=== PATIENT | female | born 1980 | race Caucasian/White ===

== ENCOUNTER 2017-11-18 17:03 | Emergency (ER) | payer BC, SELFPAY ==
[2017-11-18 17:44] VITALS: BP 119/71; PULSE 105; RESP 20; TEMP 37.2; O2SAT 99; BMI 27.2
[2017-11-18 18:11] LABS: Color,Urine Yellow (Yellow)
[2017-11-18 18:12] LABS: Apearance,Urine Cloudy (Clear); Bilirubin,Urine 1+ (Negative); Blood, Urine Negative (Negative); Glucose,Urine (UA) Negative (Negative); Ketones,Urine Negative (Negative); Protein,Urine Trace (Negative); Urobilinogen,Urine 1 EU/dl (0.2)
[2017-11-18 18:13] LABS: UTC Leukocyte Esterase,Urine Trace (Negative); UTC Nitrate,Urine Negative (Negative)
--- NOTE | 2017-11-18 18:16 | HMH.EDUTC ---
[facility] [place] Dis[place] Clinical Impression: UTI (urinary tract infection) Qualifiers: Urinary tract infection type: site unspecified Hematuria presence: without hematuria Qualified Code(s): N39.0 - Urinary tract infection, site not specified Disposition: Home, Self-Care Condition on Discharge: Good Instructions: Urinary Tract Infection Additional Instructions: FOllow up with family doctor Return if needed Take medication as prescribed Over the counter Motrin or Tylenol as needed for pain Drink plenty of fluids *Increase fluids. Water not Soda or Tea *Start antibiotic immediately and be sure to take as ordered for the FULL length of time although you should start to see improvement over the next 48 hours *Pyridium as needed Remember this medication will turn your urine [place]. This is normal but it will stain what ever it gets on *You should not use Pyridium for more than 48 hours. If so , follow up with your primary physician to review urine culture and ensure that antibiotic is adequate for infection *Be SURE to follow up anytime for new or worsening symptoms. AND in 48 hours for urine culture results AND in 10-14 days to repeat UA to ensure infection is resolved and blood no longer present *Be sure to let your PCP know that we sent urine cultures from the [facility] so they can follow up to ensure that you area the on the correct antibiotic Prescriptions: Phenazopyridine HCl [Pyridium 200mg Tablet] 200 mg PO TID #6 tablet predniSONE [Prednisone 10mg Tab Dose-Pack] 10 mg PO UD DOSE PK #1 pack Sulfamethoxazole/Trimethoprim [Bactrim DS tablet] 1 each PO BID #20 tablet Time of Disposition: 19:10 Medical Decision Making Vital Signs: 11/18/17 17:44 Temperature 99 F Temperature Source Temporal Artery Scan Pulse Rate [Brachial] 105 H Respiratory Rate 20 Blood Pressure [Right Arm] 119/71 Blood Pressure Mean [Right Arm] 87 Blood Pressure Source [Right Arm] Automatic Cuff Blood Pressure Position [Right Arm] Sitting 02 Sat by Pulse Oximetry 99 Oxygen Delivery Method Room Air - Lab Data Lab Results 11/18/17 17:48: Urine Color Yellow, Urine Appearance Cloudy, Urine pH 6.0, Ur Specific [place] 1.020, Urine Protein Trace, Urine Glucose (UA) Negative, Urine Ketones Negative, Urine Blood Negative, Urine Nitrate Negative, Urine Bilirubin 1+ A, Urine Urobilinogen 1, Ur Leukocyte Esterase Trace 11/18/17 18:15: Influenza Type A Ag Negative, Influenza Type B Ag Negative Orders (Tests/Meds): ED MEDICATIONS Discontinued Medications Generic Name Dose Route Start Last Admin Trade Name Kiran PRN Reason Stop Dose Admin Dicyclomine HCl 10 mg 11/18/17 18:16 11/18/17 18:23 Bentyl 10mg Capsule PO 11/18/17 18:17 10 mg ONCE ONE Administration - Clinton Inquiry Pt receiving controlled substance: No Clinton was queried for this patient: No - Reevaluation(s) Time: 18:54 (Patient was given Bentyl State that cramping she was feeling in abdominal area now gone and feeling much better Again recommended that patient be transfered to ER and be seen and still refusing transfer) [facility] [place] HPI - General Stated complaint: nausea, stomach cramps Mode of Arrival: Ambulatory Source of Information: Patient Limitations: No Limitations Description of Symptoms (Recalled from Triage Doc. by RN): LOWER ABDOMINAL PAIN AND LOWER BACK PAIN HEENT Symptoms (Recalled from RN notes): No Resp Symptoms (Recalled from RN notes): No Skin Symptoms (Recalled from RN notes): No MS Symptoms (Recalled from RN notes): No Functional Status (Recalled from RN notes): NA - History of Present Illness Provider Complaint: Patient state that she has been having a cramping like feeling in her abdomen States that it feels like at times that it goes into her lower back area State that she has not had any burning with urination but her urine looks a little dark States that several people at her work has had the stomach virus too and not sure if she may or may not have it Sta
[2017-11-18 18:28] LABS: UTC Influenza A Antigen Negative (Negative); UTC Influenza B Antigen Negative (Negative)
== END 2017-11-18 19:16 | disposition home or self-care (01) ==
PROVIDERS: Emergency Provider Nurse Practitioner; Family Provider Family Medicine
DX: N39.0 Urinary tract infection, site not specified (principal)
CPT/HCPCS: 81003; 87804; 99202

== ENCOUNTER 2017-11-30 17:10 | Emergency (ER) | payer BC, SELFPAY ==
[2017-11-30 17:24] VITALS: BP 113/77; PULSE 104; RESP 20; TEMP 36.9; O2SAT 97; BMI 27.2
--- NOTE | 2017-11-30 17:36 | CT_ITS ---
CT abdomen pelvis wo con CLINICAL INDICATION: Periumbilical pain, abdominal cramping ITS.REASON: ABD CRAMPS ORDERING PHYSICIAN: Navneet Rubin MD PATIENT AGE: 37 years COMPARISON: 07/10/2015 TECHNIQUE: Axial images obtained with sagittal and coronal reformats. PROCEDURE: Oral Contrast: None IV Contrast: None . FINDINGS: No acute finding in the lung bases. The liver is somewhat hyperdense measuring 70 Hounsfield units. The spleen measures 49 Hounsfield units. This does raise question of hemachromatosis. No focal liver lesions are evident. The gallbladder, spleen, adrenal glands, and pancreas have an unremarkable unenhanced CT appearance. Slight hyperdensity noted of the renal papilla nonspecific but may be seen with medullary sponge kidney. No obstructing stones or ureteral calculi. No hydronephrosis There are thickened small bowel loops present in the pelvis with fluid-filled small bowel with a few scattered air-fluid levels. Fluid is present around the thickened bowel loops and in the cul-de-sac. These findings are consistent with enteritis which could be infectious or due to inflammatory bowel disease. The base of the appendix is slightly prominent at 8 mm with hyperdense material within the base of the appendix which could be due to inspissated bowel content, medication, or appendicoliths. No evidence of appendicitis. Possible small calcification in the bladder neck. Prior hysterectomy. No acute bony anomalies. There are scattered small lymph nodes in the mesentery's. IMPRESSION: 1. Thickened small bowel loops in the pelvis with scattered air-fluid levels of the small bowel which are slightly dilated. These findings are consistent with enteritis and could be infectious or inflammatory such as Crohn's disease. Infiltrating neoplasm less likely but not totally excluded. 2. Appendicoliths or inspissated bowel contents within the appendix no evidence of appendicitis. 3. Hyperdense liver raising the suspicion of hemachromatosis 4. Hyperdense renal papilla nonspecific but may be seen with medullary sponge disease. No obstructing renal or ureteral calculi.
[2017-11-30 18:05] LABS: Microscopic, Urine URINE MICROSCOPIC (MICROSCOPIC)
[2017-11-30 18:06] LABS: Basophils # 0.1 K/mm3 (0-0.2); Basophils % 0.4 % (0.1-2.0); Eosinophils # 0.4 K/mm3 (0.0-0.4); Eosinophils % 2.8 % (0.1-12.0); Hematocrit 47.8 % (37.0-47.0); Hemoglobin 15.7 g/dL (12.2-16.2); Lymphocytes # 3.8 K/mm3 (0.7-4.5); Lymphocytes % 27.7 K/mm3 (10-50); Mean Corpuscular Hemoglobin 28.3 pg (27.0-31.2); Mean Corpuscular Volume 85.9 fl (81-99); Mean Platelet Volume 7.1 fl (7.4-10.4); Monocytes # 0.6 K/mm3 (0.1-1.0); Neutrophils % 65.3 % (37.0-80.0); Platelet Count 351 K/mm3 (142-424); Red Blood Count 5.56 M/mm3 (4.20-5.40); Red Cell Distribution Width 13.1 % (11.5-17.5); White Blood Count 13.8 K/mm3 (4.8-10.8)
[2017-11-30 18:17] LABS: Alanine Aminotransferase 29 U/L (12-78); Albumin Level 3.3 gm/dL (3.4-5.0); Alkaline Phosphatase 56 U/L (46-116); Anion Gap 8.8 mEq/L (5-15); Aspartate Amino Transferase 15 U/L (15-37); Bilirubin,Total 0.1 mg/dL (0.2-1.0); Blood Urea Nitrogen 9 mg/dL (7-18); Carbon Dioxide 30 mmol/L (21.0-32.0); Chloride 104 mmol/L (98-107); Creatinine Clearance Estimated 97 mL/min (0-300); Creatinine,Serum 0.78 mg/dL (0.55-1.02); Estimated Glomerular Filt Rate 84 ml/min (>60); GFR (African American) 102 ML/MIN (>60); Globulin 3.3 gm/dl (1.3-3.2); Glucose 93 mg/dL (74-106); Potassium 3.8 mmoL/L (3.5-5.1); Sodium 139 mmol/L (136-145); Total Protein,Serum 6.6 gm/dL (6.4-8.2)
[2017-11-30 18:29] LABS: Urine Pregnancy, HCG Qual. Negative (Negative)
--- NOTE | 2017-11-30 19:09 | HMH.EDABDPAI ---
ED Disposition Clinical Impression: Enteritis, Lymphoma, Tobacco use Disposition: Home, Self-Care Condition on Discharge: Good Instructions: DI for Acute Abdomen Additional Instructions: 1- clear/soft diet. 2- start abx 3- bentyl per pt request. 4- out patietn stool studies and diarrhea panel. 5- flagyl and cipro. 6- I gave you your CT scan to discuss with Dr Grossman about further work up. Prescriptions: Dicyclomine HCl [Bentyl 10mg capsule] 10 mg .ROUTE Q8HP PRN #21 capsule PRN Reason: Cramping Ciprofloxacin HCl [Cipro 500mg Tab] 500 mg PO BID #20 tab metroNIDAZOLE [Flagyl] 500 mg PO Q8 #30 tablet Referrals: Ken Grossman MD [Primary Care Provider] - - Critical Care Critical Care Time: No Attestation: On 11/30/17, the high probability of a clinically significant, sudden or life threatening deterioration of the following system(s) required my full and direct attention, intervention and personal management. The time I documented below is in addition to time spent performing reported procedures but includes the following listed in this critical care notation. Medical Decision Making - Medical Records Medical records reviewed: Yes: I reviewed the patient's medical records. Vital Signs: 11/30/17 17:24 Temperature 98.4 F Temperature Source Tympanic Pulse Rate [Right Radial] 104 H Respiratory Rate 20 Blood Pressure [Right Arm] 113/77 Blood Pressure Mean [Right Arm] 89 Blood Pressure Source [Right Arm] Automatic Cuff Blood Pressure Position [Right Arm] Sitting 02 Sat by Pulse Oximetry 97 Oxygen Delivery Method Room Air - Lab Data Lab Results 11/30/17 17:33: WBC 13.8 H, RBC 5.56 H, Hgb 15.7, Hct 47.8 H, MCV 85.9, MCH 28.3, MCHC 33.0, RDW 13.1, Plt Count 351, MPV 7.1 L, Neut % (Auto) 65.3, Lymph % (Auto) 27.7, [place] % (Auto) 4.0, Eos % (Auto) 2.8, Baso % (Auto) 0.4, Neut # (Auto) 9.0 H, Lymph # (Auto) 3.8, [place] # (Auto) 0.6, Eos # (Auto) 0.4, Baso # (Auto) 0.1 11/30/17 17:33: Sodium 139, Potassium 3.8, Chloride 104, Carbon Dioxide 30, Anion Gap 8.8, BUN 9, Creatinine 0.78, Estimated Creat Clear 97, Estimated GFR 84, Est GFR ( Amer) 102, Glucose 93, Calcium 9.0, Total Bilirubin 0.1 L, AST 15, ALT 29, Alkaline Phosphatase 56, Total Protein 6.6, Albumin 3.3 L, Globulin 3.3 H, Albumin/Globulin Ratio 1.0 L 11/30/17 17:33: Urine HCG, Qual Negative Result diagrams: 11/30/17 17:33 11/30/17 17:33 Orders (Tests/Meds): ORDERS Category Date Time Status CT abdomen pelvis wo con Stat Cat Scan 11/30/17 17:36 Taken Urinalysis and Microscopic Stat Lab 11/30/17 17:33 Received - CT Data CT Scan: Abdomen, Pelvis Time Received: 19:[address] Reviewed: Yes: I have viewed the radiologist's interpretation Preliminary Findings: Abnormal - [place] Inquiry Pt receiving controlled substance: No [place] was queried for this patient: No Medical Decision Making Narrative: I requested from the patient is to sample to complete her workup in the form of stool culture panel but she declined, be given orders as an outpatient. I did review the patient's CT scan report and lab results the patient. Furthermore she was given report to discuss with Dr. Grossman. The above findings suggest enteritis but cannot exclude lymphoma. Abdominal Pain HPI - General Chief Complaint: Abdominal Pain Stated Complaint: Abd cramps Mode of Arrival: Ambulatory Limitations: No Limitations Description of Symptoms (Recalled from ER Triage Doc. by RN): Abdominal cramping for a couple of weeks. States she was seen a few weeks ago for a UTI and took a course of Bactrim. Denies diarrhea. - History of Present Illness HPI narrative: 37 years old white female who presented to the ED with 2 week history of mid abdominal pain. She reports that the pain is crampy with no precipitating or relieving factor. She denies having fever chills nausea vomiting diarrhea. She has no hematemesis coffee-ground emesis melanoti
--- NOTE | 2017-11-30 19:12 | ED_ITS ---
ED Disposition Clinical Impression: Enteritis, Lymphoma, Tobacco use Disposition: Home, Self-Care Condition on Discharge: Good Instructions: DI for Acute Abdomen Additional Instructions: 1- clear/soft diet. 2- start abx 3- bentyl per pt request. 4- out patietn stool studies and diarrhea panel. 5- flagyl and cipro. 6- I gave you your CT scan to discuss with Dr Grossman about further work up. Prescriptions: Dicyclomine HCl [Bentyl 10mg capsule] 10 mg .ROUTE Q8HP PRN #21 capsule PRN Reason: Cramping Ciprofloxacin HCl [Cipro 500mg Tab] 500 mg PO BID #20 tab metroNIDAZOLE [Flagyl] 500 mg PO Q8 #30 tablet Referrals: Ken Grossman MD [Primary Care Provider] - - Critical Care Critical Care Time: No Attestation: On 11/30/17, the high probability of a clinically significant, sudden or life threatening deterioration of the following system(s) required my full and direct attention, intervention and personal management. The time I documented below is in addition to time spent performing reported procedures but includes the following listed in this critical care notation. Medical Decision Making - Medical Records Medical records reviewed: Yes: I reviewed the patient's medical records. Vital Signs: 11/30/17 17:24 Temperature 98.4 F Temperature Source Tympanic Pulse Rate [Right Radial] 104 H Respiratory Rate 20 Blood Pressure [Right Arm] 113/77 Blood Pressure Mean [Right Arm] 89 Blood Pressure Source [Right Arm] Automatic Cuff Blood Pressure Position [Right Arm] Sitting 02 Sat by Pulse Oximetry 97 Oxygen Delivery Method Room Air - Lab Data Lab Results 11/30/17 17:33: WBC 13.8 H, RBC 5.56 H, Hgb 15.7, Hct 47.8 H, MCV 85.9, MCH 28.3 , MCHC 33.0, RDW 13.1, Plt Count 351, MPV 7.1 L, Neut % (Auto) 65.3, Lymph % ( Auto) 27.7, [place] % (Auto) 4.0, Eos % (Auto) 2.8, Baso % (Auto) 0.4, Neut # (Auto ) 9.0 H, Lymph # (Auto) 3.8, [place] # (Auto) 0.6, Eos # (Auto) 0.4, Baso # (Auto) 0.1 11/30/17 17:33: Sodium 139, Potassium 3.8, Chloride 104, Carbon Dioxide 30, Anion Gap 8.8, BUN 9, Creatinine 0.78, Estimated Creat Clear 97, Estimated GFR 84, Est GFR ( Amer) 102, Glucose 93, Calcium 9.0, Total Bilirubin 0.1 L, AST 15, ALT 29, Alkaline Phosphatase 56, Total Protein 6.6, Albumin 3.3 L, Globulin 3.3 H, Albumin/Globulin Ratio 1.0 L 11/30/17 17:33: Urine HCG, Qual Negative Result diagrams: 11/30/17 17:33 11/30/17 17:33 Orders (Tests/Meds): ORDERS Category Date Time Status CT abdomen pelvis wo con Stat Cat Scan 11/30/17 17:36 Taken Urinalysis and Microscopic Stat Lab 11/30/17 17:33 Received - CT Data CT Scan: Abdomen, Pelvis Time Received: 19:[address] Reviewed: Yes: I have viewed the radiologist's interpretation Preliminary Findings: Abnormal - Clinton Inquiry Pt receiving controlled substance: No [place] was queried for this patient: No Medical Decision Making Narrative: I requested from the patient is to sample to complete her workup in the form of stool culture panel but she declined, be given orders as an outpatient. I did review the patient's CT scan report and lab results the patient. Furthermore she was given report to discuss with Dr. Grossman. The above findings suggest enteritis but cannot exclude lymphoma. Abdominal Pain HPI - General Chief Complaint: Abdominal Pain Stated Complaint: Abd cram
[2017-11-30 19:13] LABS: Bacteria,Urine 2+ /lpf; Calcium Oxalate Crystals,Urine 3+ /lpf; RBC,Urine Occasional #/hpf (0-3); Squamous Epithelial Cell,Urine TNTC #/hpf (0-5)
[2017-11-30 19:17] LABS: Appearance,Urine CLEAR (Clear); Bilirubin,Urine Negative (Negative); Blood, Urine Negative (Negative); Color,Urine YELLOW (Yellow); Glucose,Urine (UA) Negative (Negative); Ketones,Urine Negative (Negative); Leukocyte Esterase,Urine Negative (Negative); Nitrate,Urine Negative (Negative); Protein,Urine Negative (Negative); Specific Gravity, Urine >= 1.030 (1.005-1.030); Urobilinogen,Urine 0.2 EU/dl (0.2)
== END 2017-11-30 20:01 | disposition home or self-care (01) ==
PROVIDERS: Emergency Provider Emergency Medicine; Family Provider Family Medicine; PCP Family Medicine
DX: K52.9 Noninfective gastroenteritis and colitis, unspecified (principal); C85.90 Non-Hodgkin lymphoma, unspecified, unspecified site; Z79.899 Other long term (current) drug therapy; F17.210 Nicotine dependence, cigarettes, uncomplicated
CPT/HCPCS: 74176; 80053; 81001; 81025; 85025; 87086; 99282

== ENCOUNTER → 2017-12-01 14:01 | Outpatient (CLI) | payer BC, SELFPAY ==
[2017-12-01 14:07] LABS: Adenovirus F 40/41, stool Not Detected (NotDetected); Astrovirus Not Detected (NotDetected); Campylobacter Not Detected (NotDetected); Clostridium Difficile A/B, PCR Not Detected (NotDetected); Cryptosporidium Not Detected (NotDetected); Cyclospora Cayetanesis Not Detected (NotDetected); Entamoeba histolytica Not Detected (NotDetected); Enteroaggregative E coli Not Detected (NotDetected); Enteropathogenic E coli Not Detected (NotDetected); Enterotoxigenic E coli Not Detected (NotDetected); Giardia lamblia Not Detected (NotDetected); Plesimonas Shigalloides, PCR Not Detected (NotDetected); Rotavirus A Not Detected (NotDetected); Salmonella, PCR Not Detected (NotDetected); Sapovirus Not Detected (NotDetected); Shiga-like toxin E coli Not Detected (NotDetected); Shigella Enterovasive E coli Not Detected (NotDetected); Vibrio Cholerae Not Detected (NotDetected); Vibrio, PCR Not Detected (NotDetected); Yersinia Entercolitica, PCR Not Detected (NotDetected)
[2017-12-02 04:49] LABS: Norovirus Detected (NotDetected)
== END ==
PROVIDERS: PCP Family Medicine; Visit Provider Emergency Medicine
DX: K52.9 Noninfective gastroenteritis and colitis, unspecified (principal)
CPT/HCPCS: 87507

== ENCOUNTER → 2017-12-17 08:43 | Outpatient (CLI) | payer BC, SELFPAY ==
--- NOTE | 2017-12-17 09:02 | US_ITS ---
US abdomen limited: HISTORY: Abdominal pain ITS.REASON: LEUKOPENIA,ANEMIA ORDERING PHYSICIAN: Ken Grossman MD PATIENT AGE: 37 years COMPARISON: None FINDINGS: PANCREAS: Unremarkable. No obvious mass or abnormal fluid collection. No ductal dilatation LIVER: No focal liver lesions demonstrated. Homogeneous echogenicity. No intrahepatic biliary ductal dilatation evident RIGHT KIDNEY: Unremarkable. Normal size and echogenicity. No hydronephrosis GALLBLADDER: There is a small polyp within the gallbladder measuring up to 4 mm. No gallstones, gallbladder wall thickening, or pericholecystic fluid. Common bile duct is normal at 3 mm. IMPRESSION: 1. Small gallbladder polyp. 2. Otherwise negative limited abdominal ultrasound
== END ==
PROVIDERS: Family Provider Family Medicine; PCP Family Medicine; Visit Provider Family Medicine
DX: R10.11 Right upper quadrant pain (principal)
CPT/HCPCS: 76705

== ENCOUNTER → 2017-12-31 10:08 | Outpatient (CLI) | payer BC, SELFPAY ==
--- NOTE | 2017-12-31 10:15 | NM_ITS ---
NM hepatobiliary w pharm HISTORY: Right upper quadrant pain ITS.REASON: ABDOMINAL PAIN ORDERING PHYSICIAN: Ken Grossman MD PATIENT AGE: 37 years COMPARISON: Ultrasound 12/17/17 DOSE: 8.32 mCi technetium Choletec Fatty meal/ensure was given and there was pain with the fatty meal. FINDINGS: Homogeneous activity is present within the hepatic parenchyma. Activity is present in the gallbladder by 30 minutes. Activity is present in the small bowel by 10 minutes. The gallbladder ejection fraction is calculated to be 18% The patient did report pain or other symptoms during the fatty meal. IMPRESSION: 1. No evidence of common or cystic duct obstruction. 2. Low gallbladder ejection fraction. Pain was reported with the fatty meal. These findings may represent gallbladder dyskinesia.
== END ==
PROVIDERS: Family Provider Family Medicine; PCP Family Medicine; Visit Provider Family Medicine
DX: R10.11 Right upper quadrant pain (principal)
CPT/HCPCS: 78227; A9537

== ENCOUNTER 2018-01-22 17:55 | Emergency (ER) | payer BC, SELFPAY ==
[2018-01-22 18:08] VITALS: BP 114/79; PULSE 76; RESP 20; TEMP 37.3; O2SAT 98; BMI 28.3
--- NOTE | 2018-01-22 18:24 | HMH.EDUTC ---
[facility] [place] Clinical Impression: Chronic idiopathic urticaria Disposition: Home, Self-Care Condition on Discharge: Good Instructions: DI for Hives Additional Instructions: * Start steroid tomorrow since you had dexamethasone injection this evening. Helps with inflammation therefore, itching and rash. Follow directions on package. Rvwd side effects. Pt reports they have taken them before. * dexamethasone Injection: you received an injection of dexamethasone today. This is a quick acting steroid as we discussed. Remember as we discussed, steroids can cause you to feel flushed, jittery, difficult to sleep, energetic, higher blood pressure. You report you have taken steroids before and aware of this. * cool showers or compresses calms the itching. Oatmeal baths may help as well. * If you need additional medication to help with the itching, zyrtec in the morning and if necessary, benadryl at bedtime. Just remember benadryl causes drowsiness. * Cortisone cream may also help if you want to try that. Prescriptions: predniSONE [Deltasone 10mg tablet] 10 mg PO BID #10 tab Referrals: Ken Grossman MD [Primary Care Provider] - (Return to ER or call 911 for any difficulty swallowing or breathing. Otherwise, be sure to follow up with Anastasia in Dr. Grossman' office for new, worsening or persisting symptoms.) Time of Disposition: 18:50 Medical Decision Making - Medical Records Medical records reviewed: Yes: I reviewed the patient's medical records. MR Comment: Last seen at [facility] w/ CC rash 07/02/2016. Treated w/ steroids at that time as well. - [place] Inquiry Pt receiving controlled substance: No Vital Signs: 01/22/18 18:08 Temperature 99.2 F Temperature Source Temporal Artery Scan Pulse Rate [Right Radial] 76 Respiratory Rate 20 Blood Pressure [Right Arm] 114/79 Blood Pressure Mean [Right Arm] 90 02 Sat by Pulse Oximetry 98 Oxygen Delivery Method Room Air Orders (Tests/Meds): ED MEDICATIONS Discontinued Medications Generic Name Dose Route Start Last Admin Trade Name Freq PRN Reason Stop Dose Admin Dexamethasone Sodium Phosphate 10 mg 01/22/18 18:25 01/22/18 18:43 Decadron 4mg/Ml 5ml Mdv IM 01/22/18 18:26 10 mg ONCE ONE Administration - Reevaluation(s) Time: 18:48 Reevaluation #1: Pt reports feeling fine. No noticeable improvement in hives but she feels like they are improving. Reinforced POC. Agrees to follow up. [facility] [place] HPI - General Stated complaint: rash Time Seen by Provider: 01/22/18 18:15 Mode of Arrival: Family Vehicle Source of Information: Patient Limitations: No Limitations Description of Symptoms (Recalled from Triage Doc. by RN): PT C/O HIVES ALL OVER HER BODY. PT HAS CHRONIC HIVES. HEENT Symptoms (Recalled from RN notes): No Resp Symptoms (Recalled from RN notes): No Skin Symptoms (Recalled from RN notes): Yes (HIVES) MS Symptoms (Recalled from RN notes): No Functional Status (Recalled from RN notes): NA - History of Present Illness Provider Complaint: c/o needing steroids. Hx of chronic hives. Reports she has seen multiple types of specialists and no one has found a cause. Dr. Zhao told me there was no reason for this after all the testing I had done and that some people just get them for no reason. She basically said live with it. . PCP started pt on valium to help her tolerate the chronic itching. When the hives get larger or around her eyes, she typically gets steroids. Pt isn't sure when she had steroids last but not for months I know . Denies throat irritation, dyspnea, chest tightness. Hx of asthma. cough unchanged. Hives have gotten larger throughout the day today however pt reports it is not uncommon for her to have dinner plate size hives at times. States she can't begin to list all the testing she has had done through the years for these or all the medications she has tried. She knows steroids help to calm them down for awhile at least . Denies HTN, DM. - Related D
--- NOTE | 2018-01-22 18:28 | ED_ITS ---
[facility] [place]ression: Chronic idiopathic urticaria Disposition: Home, Self-Care Condition on Discharge: Good Instructions: DI for Hives Additional Instructions: * Start steroid tomorrow since you had dexamethasone injection this evening. Helps with inflammation therefore, itching and rash. Follow directions on package. Rvwd side effects. Pt reports they have taken them before. * dexamethasone Injection: you received an injection of dexamethasone today. This is a quick acting steroid as we discussed. Remember as we discussed, steroids can cause you to feel flushed, jittery, difficult to sleep, energetic, higher blood pressure. You report you have taken steroids before and aware of this. * cool showers or compresses calms the itching. Oatmeal baths may help as well. * If you need additional medication to help with the itching, zyrtec in the morning and if necessary, benadryl at bedtime. Just remember benadryl causes drowsiness. * Cortisone cream may also help if you want to try that. Prescriptions: predniSONE [Deltasone 10mg tablet] 10 mg PO BID #10 tab Referrals: Ken Grossman MD [Primary Care Provider] - (Return to ER or call 911 for any difficulty swallowing or breathing. Otherwise, be sure to follow up with Anastasia in Dr. Grossman' office for new, worsening or persisting symptoms.) Time of Disposition: 18:50 Medical Decision Making - Medical Records Medical records reviewed: Yes: I reviewed the patient's medical records. MR Comment: Last seen at [facility] w/ CC rash 07/02/2016. Treated w/ steroids at that time as well. - [place] Inquiry Pt receiving controlled substance: No Vital Signs: 01/22/18 18:08 Temperature 99.2 F Temperature Source Temporal Artery Scan Pulse Rate [Right Radial] 76 Respiratory Rate 20 Blood Pressure [Right Arm] 114/79 Blood Pressure Mean [Right Arm] 90 02 Sat by Pulse Oximetry 98 Oxygen Delivery Method Room Air Orders (Tests/Meds): ED MEDICATIONS Discontinued Medications Generic Name Dose Route Start Last Admin Trade Name Freq PRN Reason Stop Dose Admin Dexamethasone Sodium Phosphate 10 mg 01/22/18 18:25 01/22/18 18:43 Decadron 4mg/Ml 5ml Mdv IM 01/22/18 18:26 10 mg ONCE ONE Administration - Reevaluation(s) Time: 18:48 Reevaluation #1: Pt reports feeling fine. No noticeable improvement in hives but she feels like they are improving. Reinforced POC. Agrees to follow up. [facility] [facility] [place] - General Stated complaint: rash Time Seen by Provider: 01/22/18 18:15 Mode of Arrival: Family Vehicle Source of Information: Patient Limitations: No Limitations Description of Symptoms (Recalled from Triage Doc. by RN): PT C/O HIVES ALL OVER HER BODY. PT HAS CHRONIC HIVES. HEENT Symptoms (Recalled from RN notes): No Resp Symptoms (Recalled from RN notes): No Skin Symptoms (Recalled from RN notes): Yes (HIVES) MS Symptoms (Recalled from RN notes): No Functional Status (Recalled from RN notes): NA - History of Present Illness Provider Complaint: c/o needing steroids. Hx of chronic hives. Reports she has seen multiple types of specialists and no one has found a cause. Dr. Zhao told me there was no reason for this after all the testing I had done and that some people just get them for no reason. She basically said live with it. . PCP started pt on valium to help her tolerate the chronic itching. When the hives get larger or around her eyes, she typically gets maranda
[2018-01-22 18:56] VITALS: BP 110/82; PULSE 79; RESP 16; TEMP 37.2; O2SAT 100
== END 2018-01-22 18:56 | disposition home or self-care (01) ==
LOC: UTC 18:28 → ER 18:44 → UTC 18:45
PROVIDERS: Emergency Provider Nurse Practitioner Family; Family Provider Family Medicine; PCP Family Medicine
DX: L50.1 Idiopathic urticaria (principal); F41.9 Anxiety disorder, unspecified; J45.909 Unspecified asthma, uncomplicated; F17.210 Nicotine dependence, cigarettes, uncomplicated; Z90.710 Acquired absence of both cervix and uterus
CPT/HCPCS: 96372; 99201

== ENCOUNTER → 2019-08-04 15:08 | Outpatient (CLI) | payer BC, SELFPAY ==
--- NOTE | 2019-08-04 15:37 | MM_ITS ---
PROCEDURE: MM DIG MAMM BI DX W/CAD CLINICAL INDICATION: BREAST PAIN COMPARISON: DMDB DIGITAL MAMM-DX BILATERAL from 11/05/2010 BR US BREAST-RT COMPLETE W/AXILLA from 01/23/2016 DMDB DIG MAMM-DX NATANAEL from 01/23/2016 US BREAST RT COMPLETE from 08/04/2019 TECHNIQUE: Standard images performed along with spot compression views and bilateral breast ultrasound FINDINGS: Dense fibroglandular tissue. This could obscure underlying mammographic abnormalities. A palpable nodule should be managed on a clinical basis despite negative mammogram and negative ultrasound. Right breast: Scattered areas of asymmetric density are noted which appear to compress out on the focal spot compression views. Right breast ultrasound: 4 mm cyst at 12 o'clock. No other significant anomalies are evident. Left breast: Asymmetric density deep in the upper left breast which appears to compress out is fibroglandular tissue. A at the asymmetry in the lateral and medial left breast which also appears to compress out. There is a clip in the outer aspect of the left breast. Left breast ultrasound: Complex cyst at 12 o'clock at 5 mm. 3 mm cyst at 11 o'clock. Ductal ectasia in the retroareolar region. IMPRESSION: Scattered areas of asymmetry which are felt to be probably benign. Bilateral complex breast cyst. Any palpable abnormality should be managed on a clinical basis especially in a patient with this dense breast tissue. BI-RAD Category: 3 Probably Benign Finding Short Term Follow-up FOLLOW-UP: 6M 6Month Follow-up (A letter has been sent to the patient regarding results of the study.) Dictated by: Jimenez Garrison MD 08/04/2019 16:26 Electronically signed by Jimenez Garrison MD in [place] 08/06/2019 22:34
== END ==
PROVIDERS: PCP Family Medicine; Visit Provider Family Medicine
DX: N64.4 Mastodynia (principal)
CPT/HCPCS: 76641; 77066

== ENCOUNTER → 2019-08-29 13:34 | Outpatient (CLI) | payer BC, SELFPAY ==
--- NOTE | 2019-08-29 13:38 | CT_ITS ---
PROCEDURE: CT CHEST W CON CLINCAL INDICATION: MASTODYNIA Other are COMPARISON: US BREAST LT COMPLETE from 08/04/2019 MM DIG MAMM BI DX W/CAD from 08/04/2019 TECHNIQUE: IV Contrast: 75ml Optiray 350 Axial images obtained with sagittal and coronal reformats. All CT scans at the facility use one or more dose reduction, viz: automated exposure control, ma/kV adjustment per patient size (including targeted exams where dose is matched to indication, i.e. head), or iterative reconstruction technique. FINDINGS: HEART: Unremarkable. Normal heart size. No significant pericardial effusion. MEDIASTINAL AND HILAR STRUCTURES: No mediastinal or hilar mass evident. No dominant adenopathy. PULMONARY ARTERIES: No pulmonary embolus evident. AORTA: No acute finding. No thoracic aortic aneurysm or dissection evident. LUNGS: Atelectatic or fibrotic changes are present in the right middle lobe, right lower lobe posteriorly, and lingula. No lobar consolidation or collapse. There is a calcified granuloma in the left upper lobe. No suspicious pulmonary nodules. PLEURAL SPACES: No significant effusion. No evidence of pneumothorax. BONY STRUCTURES: No acute bony abnormalities apparent. LYMPH NODES: No enlarged lymph nodes evident. UPPER ABDOMEN: Unremarkable. ADDITIONAL FINDINGS: There is asymmetric the this may be related to asymmetric breast tissue. Recent mammogram and ultrasound did not demonstrate any focal mass. Increased soft tissue density in the left breast laterally and posteriorly just anterior to the chest wall. IMPRESSION: 1. No acute intrathoracic pathology apparent. 2. Asymmetric increased soft tissue density along the deep and lateral portion of the left breast. This is flat like in nature and may merely represent asymmetric breast tissue. Recent mammogram and ultrasound did not demonstrate any focal mass. Please correlate with clinical findings. Any palpable abnormality should be managed on a clinical basis. 3. Scattered atelectatic or fibrotic changes Dictated by: Jimenez Garrison MD 08/30/2019 07:36 Electronically signed by Jimenez Garrison MD in [place] 08/30/2019 07:36
== END ==
PROVIDERS: PCP Family Medicine; Visit Provider Nurse Practitioner
DX: N64.4 Mastodynia (principal)
CPT/HCPCS: 71260; Q9967

== ENCOUNTER → 2019-09-26 17:02 | Outpatient (CLI) | payer BC, SELFPAY ==
[2019-09-26 17:30] LABS: Basophils # 0.1 K/mm3 (0-0.2); Basophils % 0.9 % (0.1-2.0); Eosinophils # 0.2 K/mm3 (0.0-0.4); Eosinophils % 2.9 % (0.1-12.0); Hematocrit 40.4 % (37.0-47.0); Hemoglobin 13.6 g/dL (12.2-16.2); Lymphocytes # 3.3 K/mm3 (0.7-4.5); Mean Corpuscular HGB Conc 33.6 g/dL (31.8-35.4); Mean Corpuscular Hemoglobin 28.8 pg (27.0-31.2); Mean Corpuscular Volume 85.6 fl (81-99); Monocytes # 0.5 K/mm3 (0.1-1.0); Monocytes % 5.7 % (1.7-9.3); Neutrophils # 3.8 K/mm3 (1.8-7.8); Neutrophils % 48.4 % (37.0-80.0); Platelet Count 332 K/mm3 (142-424); Red Blood Count 4.71 M/mm3 (4.20-5.40); Red Cell Distribution Width 13.3 % (11.5-17.5); White Blood Count 7.8 K/mm3 (4.8-10.8)
[2019-09-26 18:04] LABS: Anion Gap 10.4 mEq/L (5-15); Blood Urea Nitrogen 9 mg/dL (7-18); Calcium 8.4 mg/dL (8.5-10.1); Carbon Dioxide 27 mmol/L (21.0-32.0); Chloride 104 mmol/L (98-107); Creatinine,Serum 0.79 mg/dL (0.55-1.02); Estimated Glomerular Filt Rate 82 ml/min (>60); GFR (African American) 100 ML/MIN (>60); Glucose 88 mg/dL (74-106); Potassium 3.4 mmoL/L (3.5-5.1); Sodium 138 mmol/L (136-145)
== END ==
PROVIDERS: Visit Provider Surgery
DX: N61.0 Mastitis without abscess (principal)
CPT/HCPCS: 36415; 80048; 85025

== ENCOUNTER → 2020-08-23 14:24 | Outpatient (CLI) | payer BC, SELFPAY ==
--- NOTE | 2020-08-23 14:25 | US_ITS ---
PROCEDURE: MM DIG MAMM BI DX W/CAD Digital Breast Tomosynthesis Included CLINICAL INDICATION: 6 mo fu There is a history of breast cancer in the patient's 2 maternal aunts. There have been previous biopsies on each breast for benign disease. COMPARISON: MG DMDB DIGITAL MAMM-DX BILATERAL from 11/05/2010 MG DMDB DIG MAMM-DX NATANAEL from 01/23/2016 MG MM DIG MAMM BI DX W/CAD from 08/04/2019 TECHNIQUE: Standard CC and MLO images and 3D Tomosynthesis was obtained. R2 CAD reviewed. FINDINGS: Diffuse fibroglandular densities are seen throughout both breasts. There are multiple surgical clips and moderate post biopsy scarring central portion right breast. There is a single biopsy clip just deep and lateral to the nipple left breast. There is a mole marker inner quadrant left breast. There are no suspicious microcalcifications. IMPRESSION: Moderate breast density with moderate post biopsy scarring right breast and no suspicious lesions seen BI-RAD Category: 2 Benign Finding(s) FOLLOW-UP: 1YR 1 Year Follow-up (A letter has been sent to the patient regarding results of the study.) Dictated by: Dr. Darrel Denise MD 08/27/2020 07:43 Dr. Darrel Denise MD in [place] 08/27/2020 07:43
== END ==
LOC: RAD 14:25
PROVIDERS: PCP Family Medicine; Visit Provider Surgery
DX: R92.8 Other abnormal and inconclusive findings on diagnostic imaging of breast (principal); N60.02 Solitary cyst of left breast
CPT/HCPCS: 76641; 77062; 77066; G0279

== ENCOUNTER 2020-11-17 15:50 | Emergency (ER) | payer BC, SELFPAY ==
[2020-11-17 18:00] VITALS: BP 104/73; PULSE 84; RESP 20; TEMP 36.8; O2SAT 100; BMI 32.3
--- NOTE | 2020-11-17 18:13 | HMH.EDUTC ---
[facility] [place] Clinical Impression: Exposure to COVID-19 virus Disposition: Home, Self-Care Condition on Discharge: Good Instructions: DI for COVID-19 (Suspected or Confirmed ), Coronavirus Disease 2019, Preventing the Spread of Coronavirus Discharge Instructions Additional Instructions: *Monitor Temp, Over the counter Motrin or Tylenol as directed/as needed Tylenol every 4 hours and Motrin every 6 hours (as long as your family doctor has told you that you can take it) for fever or pain. and straight to ER if unable to lower temp less than 101.0 after medication given *Warm salt water gargles may help to soothe the throat *Throat Lozenges *Warm fluids like tea with honey may help to soothe the throat *Sleep elevated *Humidifier/Vaporizer Follow up IMMEDIATELY for new or worsening symptoms or no Noticeable improvement over the next 48-72 hours. 911 for difficulty breathing or swallowing You were tested for today for COVID19 your test result should be back in the next 24-48 hours, you may call to the [facility] to see if your test results are back in the next 48 hours [phone] [facility] hours are 9am-9pm You was given a handout with instructions for Self Quarantine and Self isolation for while you wait on test results and what to do if they are positive If you are positive the Health Dept will be contacting you also Referrals: Ken Grossman MD [Primary Care Provider] - As needed Forms: Work/School Release Time of Disposition: 18:15 Medical Decision Making - Clinton Inquiry Pt receiving controlled substance: No Clinton was queried for this patient: No Vital Signs: 11/17/20 18:00 Temperature 98.2 F Temperature Source Oral Pulse Rate [Right Brachial] 84 Respiratory Rate 20 Blood Pressure [Right Arm] 104/73 L Blood Pressure Mean [Right Arm] 83 Blood Pressure Source [Right Arm] Automatic Cuff Blood Pressure Position [Right Arm] Sitting 02 Sat by Pulse Oximetry 100 Oxygen Delivery Method Room Air Orders (Tests/Meds): ORDERS Category Date Time Status Covid-19 Nasal PCR ([facility]) Routine Lab 11/17/20 15:59 Ordered [facility] [place] - General Stated complaint: Covid-19 test Time Seen by Provider: 11/17/20 18:13 Mode of Arrival: Ambulatory Source of Information: Patient Limitations: No Limitations Description of Symptoms (Recalled from Triage Doc. by RN): COVID TEST FOR WORK D/T INDIRECT EXPOSURE HEENT Symptoms (Recalled from RN notes): No Resp Symptoms (Recalled from RN notes): No Skin Symptoms (Recalled from RN notes): No MS Symptoms (Recalled from RN notes): No Functional Status (Recalled from RN notes): WNL - History of Present Illness Provider Complaint: Patient state that she was exposed to someone that tested positive for COVID states that she is not having any symptoms just had to be tested before she could return to work - Related Data Home Medications Medication Instructions Recorded Confirmed Gabapentin [Gralise 600mg ER Tab] 600 mg PO DAILY 11/18/17 08/28/20 diazePAM [diazePAM 5mg Tablet] 5 mg PO DAILY 11/18/17 08/28/20 Previous Rx's Medication Instructions Recorded Hydrocod/Acet 5/325 mg [[place] 1 - 2 tab PO Q6HP PRN #23 tab 09/29/19 5/325mg tablet] Allergies Allergy/AdvReac Type Severity Reaction Status Date / Time No Known Allergies Allergy Verified 08/28/20 14:01 - Worker's Comp Is this a Worker's Comp case?: No [facility] History - Hepatitis A Screen Drug use history?: No High risk sexual behaviors?: No History of sexually transmitted infection?: No Currently employed?: No Childcare worker?: No Do you have indoor plumbing?: Yes Do you have electricity?: Yes Attestation statement:: This patient has been screened for Hepatitis A risk factors. I have reviewed the patient's past medical history: Yes Medical History: Reports:: Anxiety, Asthma Denies:: Cancer, Diabetes Mellitus Type 1, Diabetes Mellitus Type 2, Internal Pacemaker, MRSA, Seizures Other Medical Hist
[2020-11-17 18:16] VITALS: BP 104/73; PULSE 84; RESP 20; TEMP 36.8; O2SAT 100
--- NOTE | 2020-11-17 21:49 | PC.NURSE ---
COVID results reported
--- NOTE | 2020-11-18 10:51 | PC.NURSE ---
patient notified of positive covid results
== END 2020-11-17 18:31 | disposition home or self-care (01) ==
PROVIDERS: Emergency Provider Nurse Practitioner; PCP Family Medicine
DX: U07.1 COVID-19 (principal); F41.9 Anxiety disorder, unspecified; J45.909 Unspecified asthma, uncomplicated; F17.290 Nicotine dependence, other tobacco product, uncomplicated; Z79.899 Other long term (current) drug therapy
CPT/HCPCS: 99202; G0463; U0003

== ENCOUNTER 2021-06-05 03:34 | Emergency (ER) | payer BC, SELFPAY ==
[2021-06-05 03:34] VITALS: BP 120/82; PULSE 87; RESP 16; TEMP 36.6; O2SAT 97; BMI 33.0
--- NOTE | 2021-06-05 03:50 | CT_ITS ---
PROCEDURE INFORMATION: Exam: CT Neck With Contrast Exam date and time: 06/05/2021 3:50 AM Age: 40 years old Clinical indication: Painful swallowing and throat pain; Patient HX: Sore throat muffled voice; Additional info: Sore throat with muffled voice TECHNIQUE: Imaging protocol: Computed tomography images of the neck with contrast. Radiation optimization: All CT scans at this facility use at least one of these dose optimization techniques: automated exposure control; mA and/or kV adjustment per patient size (includes targeted exams where dose is matched to clinical indication); or iterative reconstruction. Contrast material: ISOVUE; Contrast volume: 75 ml; Contrast route: IV; COMPARISON: CT CHEST W CON 08/29/2019 1:56 PM FINDINGS: Nasopharynx: Unremarkable. Oropharynx: There is asymmetric soft tissue swelling/edema within the left palatine tonsil concerning for tonsillitis. I do not see a well organized peritonsillar abscess but there is the suggestion of an early developing collection here as seen on series 3, image 42 which could be the early stages of an abscess. The left tonsillar edema extends inferiorly slightly into the left aryepiglottic fold. Hypopharynx: Unremarkable. Larynx: The epiglottis appears grossly normal. The larynx is unremarkable. Retropharyngeal space: Unremarkable. Submandibular/Parotid glands: Normal. Glands are normal in size. Thyroid: Normal. No enlarged or calcified nodules. Lymph nodes: Unremarkable. No lymphadenopathy. Trachea: Visualized trachea is unremarkable. Lungs: Unremarkable as visualized. Bones/joints: Unremarkable. No acute fracture. Soft tissues: There is swelling and edema of the uvula concerning for uvulitis. IMPRESSION: 1. Asymmetric edema/swelling of the left palatine tonsil possibly representing tonsillitis. I do not see a well organized peritonsillar abscess here but there is the suggestion of a subtle developing collection which could be the early stages of an abscess. In either event, the edema/swelling continues inferiorly slightly into the left aryepiglottic fold. 2. Edema and swelling of the uvula raising concern for uvulitis. .
--- NOTE | 2021-06-05 03:52 | HMH.EDGENADL ---
ED Disposition Clinical Impression: Uvulitis Disposition: Home, Self-Care Condition on Discharge: Good Additional Instructions: Follow-up with Dr. Denton with ENT today if possible. Take Tylenol and ibuprofen. Take Augmentin as prescribed. Return to the emergency department for any new or worsening symptoms. Prescriptions: Amoxicillin/Potassium Clav [Augmentin 875-125 Tablet] 1 tab PO Q12H 10 Days #20 tab Transmission Status: Pending to [facility] Referrals: Ken Grossman MD [Primary Care Provider] - Rome Denton MD [Staff Physician] - - Critical Care Critical Care Time: No Attestation: On , the high probability of a clinically significant, sudden or life threatening deterioration of the following system(s) required my full and direct attention, intervention and personal management. The time I documented below is in addition to time spent performing reported procedures but includes the following listed in this critical care notation. Medical Decision Making - [place] Inquiry Pt receiving controlled substance: No Vital Signs: 06/05/21 03:34 Temperature 97.9 F Temperature Source Oral Pulse Rate [Right] 87 Respiratory Rate 16 Blood Pressure [Right Arm] 120/82 Blood Pressure Mean [Right Arm] 94 02 Sat by Pulse Oximetry 97 - Lab Data Lab Results 06/05/21 03:44: Group A Strep Rapid Negative 06/05/21 03:44: SARS-CoV-2 (PCR) Not detected, Influenza A Untype (PCR) Not detected, Influenza Type B (PCR) Not detected Orders (Tests/Meds): ED MEDICATIONS Discontinued Medications Generic Name Dose Route Start Last Admin Trade Name Freq PRN Reason Stop Dose Admin Acetaminophen 500 mg 06/05/21 03:50 06/05/21 04:29 Acetaminophen 500mg Tab PO 06/05/21 03:51 500 mg ONCE ONE Administration Dexamethasone 10 mg 06/05/21 03:50 06/05/21 04:29 Dexamethasone 4mg Tablet PO 06/05/21 03:51 10 mg ONCE ONE Administration Ibuprofen 600 mg 06/05/21 03:50 06/05/21 04:30 Ibuprofen 600 Mg Tablet PO 06/05/21 03:51 600 mg ONCE ONE Administration Iopamidol 75 ml 06/05/21 04:21 06/05/21 04:22 Iopamidol-370 (76%);100ml Bottle IV 06/05/21 04:22 75 ml ONCE ONE Administration Sodium Chloride 10 ml 06/05/21 04:21 06/05/21 04:22 Sodium Chloride 0.9% 10ml Syr (Rad Only) IV 06/05/21 04:22 10 ml ONCE ONE Administration ORDERS Category Date Time Status Strep Screen Confirmation Stat Micro 06/05/21 03:44 Received Medical Decision Narrative: The patient is a 40-year-old female who presents to the emergency department with sore throat. Differential diagnosis includes strep pharyngitis, COVID-19, RPA, [employer]. Given the patient's muffled voice, severe pain waking her up from onset, and difficulty swallowing will obtain CT neck and then reassess. The patient is hemodynamically stable and breathing comfortably on room air. She was given Tylenol, ibuprofen, and Decadron. CT scan showed asymmetric swelling of the left palatine tonsil representing tonsillitis with no organized peritonsillar abscess however there is some evidence of possible early stages of abscess formation. The swelling continues inferiorly slightly left to the area epiglottic fold. There is also evidence of uvulitis on CT scan. On reassessment the patient continued to have stable vital signs and be well-appearing. She continued to be able to tolerate p.o. and had no respiratory distress. She was encouraged to continue Tylenol and ibuprofen and given a prescription for Augmentin. She was encouraged to follow-up with ENT today if possible and the importance of this was emphasized. She was given strict return precautions and discharged. General Adult HPI - General Chief complaint: Upper Respiratory Infection Stated complaint: Sore throat Time Seen by Provider: 06/05/21 03:52 Mode of Arrival: Ambulatory Source of Information: Patient Limitations: No Limitations Description of Symptoms (Recalled from ER
[2021-06-05 03:53] LABS: Coronavirus 19, PCR Not Detected (NotDetected); Influenza A, PCR Not Detected (NotDetected); Influenza B, PCR Not Detected (NotDetected)
[2021-06-05 03:55] LABS: Strep Scrn Group A (Rapid) Negative (Negative)
[2021-06-05 06:39] VITALS: BP 115/74; PULSE 82; RESP 16; TEMP 36.6; O2SAT 98
== END 2021-06-05 06:40 | disposition home or self-care (01) ==
PROVIDERS: Emergency Provider Emergency Medicine; PCP Family Medicine
DX: K12.2 Cellulitis and abscess of mouth (principal); J45.909 Unspecified asthma, uncomplicated; F41.9 Anxiety disorder, unspecified; F17.290 Nicotine dependence, other tobacco product, uncomplicated
CPT/HCPCS: 70491; 87430; 99283; Q9967; U0003

== ENCOUNTER → 2021-07-29 09:56 | Outpatient (CLI) | payer BC, SELFPAY | PROVIDERS: PCP Family Medicine; Visit Provider Nurse Practitioner | DX: Z20.822 Contact with and (suspected) exposure to COVID-19 (principal); U07.1 COVID-19 | CPT/HCPCS: C9803; U0003; U0005 ==

== ENCOUNTER → 2022-04-16 10:44 | Outpatient (CLI) | payer BC, SELFPAY ==
--- NOTE | 2022-04-16 10:47 | XR_ITS ---
FINAL REPORT CLINICAL HISTORY: BLADDER PROLAPSE FINDINGS: A single view of the abdomen was obtained. There is a nonobstructive bowel gas pattern. There are no abnormally dilated loops of small bowel. There are several phleboliths in the pelvis. IMPRESSION: Nonobstructive bowel gas pattern. Reviewed, Interpreted and Dictated by Shahbaz Leija III, MD Transcribed by Sandra Restrepo Authenticated and [facility]
== END ==
LOC: RAD 10:45
PROVIDERS: PCP Nurse Practitioner Family; Visit Provider Urology
DX: N81.10 Cystocele, unspecified (principal)
CPT/HCPCS: 74018

== ENCOUNTER 2022-06-07 12:30 | Emergency (ER) | payer BC, SELFPAY ==
[2022-06-07 12:44] VITALS: BP 105/60; PULSE 102; RESP 18; TEMP 36.7; O2SAT 96; BMI 31.3
--- NOTE | 2022-06-07 12:59 | HMH.EDUTC ---
[facility] – [place] Disposition Clinical Impression: Skin lesions, generalized Disposition: Home, Self-Care Condition on Discharge: Good Instructions: DI for Rash, Methylprednisolone Injection Additional Instructions: Drink plenty of fluids. Take tylenol for pain or fever. Take the medications as directed. Follow up with your regular doctor. GO TO THE ER FOR ANY WORSENING SYMPTOMS Don't start the oral steroids until tomorrow, since you had the shot here today. Prescriptions: methylPREDNISolone [Medrol] 4 mg PO DIRECTED 6 Days #21 packet Transmission Status: Received by [facility] Referrals: Thea Vyas APRN [Primary Care Provider] - Time of Disposition: 13:13 Medical Decision Making - Medical Records Medical records reviewed: No: I reviewed the patient's medical records. - Clinton Inquiry Pt receiving controlled substance: No Vital Signs: 06/07/22 12:44 06/07/22 13:17 Temperature 98.1 F 98.1 F Temperature Source Oral Pulse Rate 102 H Pulse Rate [Left] 102 H Respiratory Rate 18 18 Blood Pressure 105/60 L Blood Pressure [Right Arm] 105/60 L Blood Pressure Mean [Right Arm] 75 02 Sat by Pulse Oximetry 96 Orders (Tests/Meds): ED MEDICATIONS Discontinued Medications Generic Name Dose Route Start Last Admin Trade Name Freq PRN Reason Stop Dose Admin Methylprednisolone Sodium Succinate 125 mg 06/07/22 13:06 06/07/22 13:12 Methylprednisolone Sod Succ 125mg Vial IM 06/07/22 13:07 125 mg ONCE ONE Administration [facility] [place] HPI - General Stated complaint: rash Time Seen by Provider: 06/07/22 13:14 Mode of Arrival: Ambulatory Source of Information: Patient Limitations: No Limitations Description of Symptoms (Recalled from Triage Doc. by RN): patient comes in with complaints of a rash. it is located on her legs and coccyx. patient states that this issue has been going on for 10 years. she has been seen by alot of doctors. she states that steroids help. HEENT Symptoms (Recalled from RN notes): No Resp Symptoms (Recalled from RN notes): No Skin Symptoms (Recalled from RN notes): Yes MS Symptoms (Recalled from RN notes): No Functional Status (Recalled from RN notes): n/a - History of Present Illness Provider Complaint: She has a rash that itches mildly on both her legs and abdomen. She denies contact with any known allergens. She has had similar episodes before that had to be treated with steroids before it would get better. - Related Data Home Medications Medication Instructions Recorded Confirmed prednisolone sodium phosphate 10 20 mg PO Q OTHER DAY tab 06/05/21 04/27/22 mg disintegrating tablet fluoxetine 20 mg capsule 20 mg PO DAILY 04/16/22 04/27/22 gabapentin 600 mg tablet 600 mg PO tab 04/27/22 04/27/22 oxybutynin chloride 5 mg ea PO 04/27/22 04/27/22 tablet,extended release 24 hr Previous Rx's Medication Instructions Recorded metronidazole 500 mg tablet 500 mg PO BID 7 Days #14 tab 05/01/22 methylPREDNISolone [Medrol] 4 mg PO DIRECTED 6 Days #21 06/07/22 packet Allergies Allergy/AdvReac Type Severity Reaction Status Date / Time No Known Allergies Allergy Verified 06/07/22 12:47 - Worker's Comp Is this a Worker's Comp case?: No [facility] History - Hepatitis A Screen Attestation statement:: This patient has been screened for Hepatitis A risk factors. I have reviewed the patient's past medical history: Yes Medical History: Reports:: Anxiety, Asthma, Depression Denies:: Cancer, Diabetes Mellitus Type 1, Diabetes Mellitus Type 2, Internal Pacemaker, MRSA, Seizures Other Medical History: Denies: Blood Transfusion Reaction Laterality Cases: Right: Lumpectomy, Bilateral: Tonsillectomy Other Surgeries: Yes: No Previous Surgery, Hysterectomy-Total, Hysterectomy-Partial, Tubal Ligation, Other. No: Pacemaker Amputation: No Fractures: Yes (facial) Comment: Right breast cyst excision, oral surgery - Social History Lelia
[2022-06-07 13:17] VITALS: BP 105/60; PULSE 102; RESP 18; TEMP 36.7
== END 2022-06-07 13:22 | disposition home or self-care (01) ==
PROVIDERS: Emergency Provider Nurse Practitioner Family; PCP Nurse Practitioner Family
DX: L98.9 Disorder of the skin and subcutaneous tissue, unspecified (principal)
CPT/HCPCS: 96372; 99212; G0463

== ENCOUNTER → 2023-06-30 06:42 | Outpatient (CLI) | payer BC, SELFPAY ==
--- NOTE | 2023-06-30 06:47 | CT_ITS ---
FINAL REPORT TECHNIQUE: Thin section axial CT images with coronal and sagittal reformats were performed through the neck. This study was performed with techniques to keep radiation doses as low as reasonably achievable (ALARA). Individualized dose reduction techniques using automated exposure control or adjustment of mA and/or kV according to the patient''s size were employed. CLINICAL HISTORY: OROPHARYNGEAL DYSPHAGIA, CERVICAL LYMPHADENOPATHY FINDINGS: There is mild mucoperiosteal thickening in left maxillary sinus. No significant cervical mass or adenopathy is identified. There is no localized inflammatory reaction or fluid collection. The vertebrae demonstrate normal height. The disc spaces are well preserved. The lungs are clear. IMPRESSION: No acute process. Reviewed, Interpreted and Dictated by Porfirio Georges MD Transcribed by Tasia Adkins Authenticated and [facility]
== END ==
LOC: RAD 06:42
PROVIDERS: PCP Nurse Practitioner Family; Visit Provider Nurse Practitioner Family
DX: R59.0 Localized enlarged lymph nodes (principal); R13.12 Dysphagia, oropharyngeal phase
CPT/HCPCS: 70490

== ENCOUNTER → 2023-07-09 09:52 | Outpatient (CLI) | payer BC, SELFPAY ==
--- NOTE | 2023-07-09 09:52 | FL_ITS ---
FINAL REPORT CLINICAL HISTORY: dysphagia 1:56 fluoro time 587.46 DAP FINDINGS: ESOPHAGRAM HISTORY: Dysphagia. PROCEDURE: The patient ingested barium. Effervescent crystals were also administered. 28 radiographs were obtained. FINDINGS: There is a small cervical web and prominent cricopharyngeal muscle. Trace aspiration was demonstrated during the exam. A barium tablet is delayed in passing through the cervical esophagus. The barium tablet does not pass through the gastroesophageal junction. There is no gastroesophageal reflux. Peristalsis is normal. Fluoro time: 1 minute 56 seconds. Total DAP: Not provided. Fluoro dose: Not provided. DAP: 587.46 uGym2. Radiation exposure in Reference air Kerma: Not provided. 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 Barium tablet does not pass through the gastroesophageal junction. Underlying lesion not excluded. Endoscopic correlation recommended. Trace aspiration. Speech pathology consult recommended. Films reviewed , interpreted and dictated by Dr. Georges. Transcribed by Willy Oneil PA-C. Reviewed, Interpreted and Dictated by Porfirio Georges MD Transcribed by DINORAH Soni Authenticated and [facility]
== END ==
LOC: RAD 09:52
PROVIDERS: PCP Nurse Practitioner Family; Visit Provider Nurse Practitioner
DX: R13.10 Dysphagia, unspecified (principal); J02.9 Acute pharyngitis, unspecified
CPT/HCPCS: 74220

== ENCOUNTER → 2023-07-27 10:43 | Outpatient (CLI) | payer BC, SELFPAY ==
--- NOTE | 2023-07-27 10:43 | FL_ITS ---
FINAL REPORT CLINICAL HISTORY: difficulty swallowing FINDINGS: MODIFIED BARIUM SWALLOW History: Dysphagia. FINDINGS: Fluoroscopy was provided for the speech pathologist to evaluate the swallowing mechanism. The patient was given several different consistencies of barium while the swallow was visualized fluoroscopically. The report of the speech pathologist should be consulted prior to making dietary decisions. Fluoro time: 3 minutes 5 seconds. Total DAP: 240.56 uGycm2. IMPRESSION: Modified barium swallow under fluoroscopic guidance. Please see the report of the speech pathologist for more detail. Films reviewed , interpreted and dictated by Dr. Georges. Transcribed by Willy Oneil PA-C. Reviewed, Interpreted and Dictated by Porfirio Georges MD Transcribed by DINORAH Soni Authenticated and [facility]
--- NOTE | 2023-07-27 11:47 | HMH.SLMBS2 ---
Speech & Language Evaluation Speech/Language Mod Barium Swallow Start: 07/27/23 11:25 Freq: once Status: Complete Protocol: Document 07/27/23 11:25 ZOIEBRITT (Rec: 07/27/23 11:47 [id number] General Information General Current Food Consistancy Regular,Thin Liquids Dentition Good Dentition Oxygen Status Room Air Patient Orientation Person,Place,Time,Situation Ability to Follow Directions Excellent Communication Ability No Impairment Voice Voice Quality Normal Voice Pitch Normal Voice Loudness Normal MBS Recommendations Diet Dietary Recommendations Regular,Thin Liquids Comment extra sauces & gravys Treatment/Strategies Treatment Recommendation Pharyngeal Resistive Exer, Compens. Strategy Educat. Strategy/Precaution Recommend Sitting Upright (90 deg), Double Swallow, Supersupraglottic Swallow, Small Bites and Sips,Alternate Liquids/Solids Referrals/Other Recommended Referrals GI Consult Mod Barium Swallow Impressions Summary and Impressions Oral Phase Impression No Impairment (WFL) Oral Phase Summary Based on clinical observations made during the oral transit and oral preparatory phases of the swallow, bolus mastication and manipulation appear to be WFL. Pharyngeal Phase Impression Moderate Impairment Pharyngeal Phase Summary Based on clinical observations made during the pharyngeal phase of the swallow, Kaitlynn has a moderate impairment 2' retrograde flow of bolus when transitioning from the pharyngeal phase to esophageal phase of the swallow. No penetration or aspiration was noted during the study, however, 2' delayed swallowing trigger at the level of the pyriform sinuses with all consistencies, poor pharyngeal wall movement, and residue noted at the valleculae ( cleared with a subsequent swallow and/or liquid/puree wash), Mrs. Small is at risk of aspiration of trace
== END ==
LOC: RAD 10:43
PROVIDERS: PCP Nurse Practitioner Family; Visit Provider Nurse Practitioner
DX: R93.3 Abnormal findings on diagnostic imaging of other parts of digestive tract (principal); T17.928A Food in respiratory tract, part unspecified causing other injury, initial encounter
CPT/HCPCS: 70371; 92611

== ENCOUNTER 2023-08-08 07:52 | Emergency (ER) | payer BC, SELFPAY ==
[2023-08-08 07:53] VITALS: BP 142/98; PULSE 87; RESP 17; TEMP 36.7; O2SAT 99; BMI 32.3
[2023-08-08 07:58] VITALS: BP 142/98; PULSE 86; O2SAT 98
--- NOTE | 2023-08-08 08:21 | HMH.EDGENADL ---
Discharge Plan Disposition Patient Disposition: Home, Self-Care Prescriptions Prescriptions: New prednisone 20 mg tablet 40 mg PO BID 5 Days Qty: 20 0RF No Action gabapentin 600 mg tablet 600 mg PO omeprazole 20 mg capsule,delayed release(DR/EC) 20 mg PO DAILY Qty: 30 2RF Referrals Follow up/Referrals: Thea Vyas APRN [Primary Care Provider] - See instructions Activity Restrictions/Add. Instructions Additional Instructions/Restrictions: Call to schedule follow up with Rheumatology at [facility]. They will help you further determine etiology of what is going on. [address], [address], [place] [address], [address], [place] [address] Call to schedule follow up with immunology at [facility]. They will help you further determine etiology of what is going on. [address] [phone] Steroids for 5 days, then daily cetirizine thereafter. Call your family doctor to establish care for this visit to the emergency department and schedule follow-up within 48 hours to ensure improvement. If you have any worsening of your condition or any other concerning signs or symptoms, return to the emergency department or your primary care doctor for further evaluation. Clinical Impressions Clinical Impression: Urticaria Instructions Patient Instructions: DI for Acute Pain -- Adult Discharge ED Provider: Christopher Jewell General Adult HPI General Chief complaint: PAIN Stated complaint: face swelling Time Seen by Provider: 08/08/23 08:00 Mode of Arrival: Ambulatory Source of Information: Patient Limitations: No Limitations Description of Symptoms (Recalled from ER Triage Doc. by RN): Patient reports having chronic hives and this morning she woke up with her top lip and face swollen. History of Present Illness HPI narrative: 42-year-old female with history of unknown etiology of intermittent urticaria presenting with urticaria. Patient states she has not had this pop up for a couple of months. Usually, take steroids and it goes away after couple days. Patient states that she is also following with someone for difficulty swallowing. States that she feels that she is seen every type of physician possible and has not gotten any answers. Patient is adopted and does not know family history. No fevers or chills, throat swelling, mouth ulcers or burning, skin sloughing, new medications Related Data Home Medications Medication Instructions Recorded Confirmed gabapentin 600 mg tablet 600 mg PO 04/27/22 08/03/23 Previous Rx's Medication Instructions Recorded omeprazole 20 mg capsule,delayed 20 mg PO DAILY #30 caps 08/03/23 release prednisone 20 mg tablet 40 mg PO BID 5 days #20 tabs 08/08/23 Allergies Allergy/AdvReac Type Severity Reaction Status Date / Time No Known Allergies Allergy Verified 08/03/23 16:05 [facility] Disclaimer: The information contained in this section may have been updated after the patient was seen, as this information can be updated by other users. Medical History (Updated 08/08/23 @ 08:21 by Christopher Jewell MD) Abnormal barium swallow Aspiration of food Chronic urticaria Dysphagia Dysphagia Neuropathy Sore throat Sore throat Surgical History History of breast surgery History of dental surgery History of hysterectomy History of tubal ligation Hx of tonsillectomy Social History Smoking Status: Current every day smoker tobacco type: e-cigarettes alcohol intake: current substance use type: denies use current occupational status: employed Travel in the last 8 weeks: None household members: spouse housing: house current occupational exposures/hazards: Yes caffeine: Yes ROS Obtained: Yes All s
[2023-08-08 08:29] VITALS: BP 142/98; PULSE 87; RESP 17; TEMP 36.7; O2SAT 99
== END 2023-08-08 08:29 | disposition home or self-care (01) ==
PROVIDERS: Emergency Provider Emergency Medicine; PCP Nurse Practitioner Family
DX: L29.9 Pruritus, unspecified (principal); R22.0 Localized swelling, mass and lump, head; G62.9 Polyneuropathy, unspecified; F17.290 Nicotine dependence, other tobacco product, uncomplicated
CPT/HCPCS: 99283

== ENCOUNTER 2023-08-16 09:05 | Emergency (ER) | payer BC, SELFPAY ==
[2023-08-16 09:30] VITALS: BP 132/76; PULSE 74; RESP 18; TEMP 36.8; O2SAT 99; BMI 30.2
--- NOTE | 2023-08-16 09:42 | EXP.UTC ---
Discharge Plan Disposition Patient Disposition: Home, Self-Care Condition: Good Prescriptions Prescriptions: New ondansetron 4 mg tablet,disintegrating 4 mg PO Q8H PRN (Reason: nausea and vomiting) Qty: 10 0RF No Action gabapentin 600 mg tablet 600 mg PO HS Referrals Follow up/Referrals: Shahbaz James JR, MD [Primary Care Provider] - See instructions Activity Restrictions/Add. Instructions Additional Instructions/Restrictions: *Monitor Temp, Over the counter Motrin or Tylenol as directed/as needed Tylenol every 4 hours and Motrin every 6 hours (as long as your family doctor has told you that you can take it) for fever or pain. and straight to ER if unable to lower temp less than 101.0 after medication given *Warm salt water gargles may help to soothe the throat *Throat Lozenges? *Warm fluids like tea with honey may help to soothe the throat? *Sleep elevated *Humidifier/Vaporizer Drink extra fluids with and between meals. If you have difficulty drinking, try very small amounts of water or suck on ice chips. ? Avoid fruit juices, as these do not replace minerals and can actually increase diarrhea. ? Children and adults can use sports drinks to replenish electrolytes. Younger children and infants should use products formulated for children, like oral rehydration solutions. ? Eat food in small amounts and let your stomach recover. ? Get lots of rest. You may feel tired or weak. ? No greasy or fried foods for the next 24-48 hours BRAT diet Bananas Rice Apples and Menands ? Make sure to drink plenty of liquids ? Return if needed ? Straight to ER if any life threatening symptoms ? Zofran as prescribed ? You was given an outpatient order for diarrhea panel, please collect specimen and bring back to outpatient lab then call back to the [facility] or follow up with family doctor for results ? Follow up with family doctor in the next 48-72 hours if no improvement or any worsening of symptoms Follow up IMMEDIATELY for new or worsening symptoms or no Noticeable improvement over the next 48-72 hours. 911 for difficulty breathing or swallowing Clinical Impressions Clinical Impression: Viral syndrome Stand Alone Forms Stand Alone Forms: Work/School Release Instructions Patient Instructions: Diarrhea, Nausea and Vomiting-Adult Discharge ED Provider: Yessenia Young [facility] HPI General Stated complaint: vomiting, nausea, diarrhea Mode of Arrival: Ambulatory Source of Information: Patient Limitations: No Limitations Time Seen by Provider: 08/16/23 09:42 Description of Symptoms (Recalled from Triage Doc. by RN): PATIENT C/O VOMITING, NAUSEA, HEADACHE AND DIARRHEA SINCE THIS MORNING HEENT Symptoms (Recalled from RN notes): Yes Resp Symptoms (Recalled from RN notes): No Skin Symptoms (Recalled from RN notes): No MS Symptoms (Recalled from RN notes): No Functional Status (Recalled from RN notes): WNL History of Present Illness Provider Complaint: Patient states that she woke up this morning not feeling well States that she has been feeling achy, having chills, N/V/D States that she went to work and they sent her home and wanted her to come and get checked Related Data Home Medications Medication Instructions Recorded Confirmed gabapentin 600 mg tablet 600 mg PO HS RLS 04/27/22 08/16/23 Previous Rx's Medication Instructions Recorded ondansetron 4 mg disintegrating 4 mg PO Q8H PRN nausea and 08/16/23 tablet vomiting #10 tabs Allergies Allergy/AdvReac Type Severity Reaction Status Date / Time No Known Allergies Allergy Verified 08/03/23 16:05 Worker's Comp Is this a Worker's Comp case?: No [facility] Disclaimer: The information contained in this section may have been updated after the patient was seen, as this information can be updated by other users. Nickie
[2023-08-16 09:45] LABS: UTC Influenza A Antigen Negative (Negative); UTC Influenza B Antigen Negative (Negative)
[2023-08-16 09:59] VITALS: BP 132/76; PULSE 74; RESP 18; TEMP 36.8; O2SAT 99
== END 2023-08-16 10:03 | disposition home or self-care (01) ==
PROVIDERS: Emergency Provider Nurse Practitioner; PCP Family Medicine
DX: R11.2 Nausea with vomiting, unspecified (principal); R19.7 Diarrhea, unspecified; B34.9 Viral infection, unspecified; F17.290 Nicotine dependence, other tobacco product, uncomplicated
CPT/HCPCS: 87635; 87804; 99212; 99214; G0463

== ENCOUNTER 2023-10-13 17:14 | Emergency (ER) | payer BC, SELFPAY ==
[2023-10-13 17:35] VITALS: BP 109/82; PULSE 72; RESP 18; TEMP 36.8; O2SAT 99; BMI 34.0
--- NOTE | 2023-10-13 17:45 | EXP.UTC ---
Discharge Plan Disposition Patient Disposition: Home, Self-Care Condition: Good Prescriptions Prescriptions: New methylprednisolone 4 mg Tablets,Dose Pack 4 mg PO DIRECTED Qty: 21 0RF Zyrtec 10 mg capsule 10 mg PO DAILY 30 Days Qty: 30 5RF No Action gabapentin 600 mg tablet 600 mg PO Referrals Follow up/Referrals: Bita Reddy APRN [Primary Care Provider] - See instructions Activity Restrictions/Add. Instructions Additional Instructions/Restrictions: Try to identify and avoid contact with the offending substance. Don't start the oral steroids (methylprednisone) until tomorrow. Follow up with your regular doctor. GO TO THE ER FOR ANY WORSENING SYMPTOMS OR CONCERNS Clinical Impressions Clinical Impression: Hives Instructions Patient Instructions: Arlyn, DI for Hives, Methylprednisolone Injection Discharge ED Provider: Burt Nelson [facility] General Stated complaint: rash Time Seen by Provider: 10/13/23 17:45 History of Present Illness Provider Complaint: She states that since this morning she has been developing hives on her body. She states that the hives are now on her neck, body, and legs. She denies any shortness of breath, chest tightness, mouth swelling, or throat swelling. She has a history of having episodes of hives with no know cause. She denies any known contact with any known allergens. Related Data Home Medications Medication Instructions Recorded Confirmed gabapentin 600 mg tablet 600 mg PO HS RLS 04/27/22 10/13/23 Previous Rx's Medication Instructions Recorded cetirizine 10 mg capsule (Zyrtec) 10 mg PO DAILY 30 days #30 caps 10/13/23 methylprednisolone 4 mg tablets in 4 mg PO DIRECTED #21 tabs 10/13/23 a dose pack Allergies Allergy/AdvReac Type Severity Reaction Status Date / Time No Known Allergies Allergy Verified 10/13/23 17:46 [facility] Disclaimer: The information contained in this section may have been updated after the patient was seen, as this information can be updated by other users. Medical History (Updated 10/13/23 @ 18:22 by Burt Nelson APRN) Abnormal barium swallow Aspiration of food Chronic urticaria Dysphagia Dysphagia Neuropathy Sore throat Sore throat Surgical History History of breast surgery History of dental surgery History of hysterectomy History of tubal ligation Hx of tonsillectomy Social History Smoking Status: Current every day smoker tobacco type: e-cigarettes alcohol intake: current substance use type: denies use current occupational status: employed Travel in the last 8 weeks: None household members: spouse housing: house current occupational exposures/hazards: Yes caffeine: Yes ROS Obtained: Yes All systems reviewed & no additional complaints except as documented Constitutional Constitutional: Denies chills and Denies fever(s) Eyes Eyes: Denies eye discharge and Denies itchy eyes ENT Ears, Nose, Mouth, and Throat: Denies dizziness, Denies otalgia, Denies lip swelling, Denies sore throat, Denies throat swelling and Denies tongue swelling Cardiovascular Cardiovascular: Denies chest pain Respiratory Respiratory: Denies shortness of breath, Denies chest congestion, Denies cough, Denies stridor and Denies wheezing Gastrointestinal Gastrointestingal: Denies nausea or vomiting Musculoskeletal Musculoskeletal: Reports system reviewed and no additional complaints, except as documented and Denies arthralgias Integumentary/Breasts Skin/Breast: Reports rash Neurologic Neurologic: Denies dizziness and Denies paresthesias Allergic/Immunologic Allergic/Immunologic: Reports as per HPI, Denies itchy eyes, Denies lip swelling, Denies throat swelling, Denies tongue swelling, Reports urticaria and Denies wheezing Physical Exam General General appearance: alert and in no a
[2023-10-13 19:12] VITALS: BP 109/82; PULSE 72; RESP 18; TEMP 36.8; O2SAT 99
== END 2023-10-13 19:00 | disposition home or self-care (01) ==
PROVIDERS: Emergency Provider Nurse Practitioner Family; PCP Nurse Practitioner Family
DX: L50.0 Allergic urticaria (principal); F17.290 Nicotine dependence, other tobacco product, uncomplicated
CPT/HCPCS: 99212; 99214; G0463

== ENCOUNTER 2024-03-23 04:35 | Emergency (ER) | payer BC, SELFPAY ==
[2024-03-23] VITALS (7 sets, daily range): BP systolic 112–123; BP diastolic 74–95; PULSE 59–97; RESP 10–18; TEMP 36.4–36.6; O2SAT 96–99; BMI 34.4
--- NOTE | 2024-03-23 04:45 | XR_ITS ---
PROCEDURE INFORMATION: Exam: XR Chest Exam date and time: 03/23/2024 5:16 AM Age: 43 years old Clinical indication: Other: Abn left arm sensation; Additional info: Left arm abnormal sensation TECHNIQUE: Imaging protocol: Radiologic exam of the chest. Views: 1 view. COMPARISON: CT CHEST W CON 08/29/2019 1:56 PM FINDINGS: Lungs: Unremarkable. No consolidation. Pleural spaces: Unremarkable. No pleural effusion. No pneumothorax. Heart/Mediastinum: Unremarkable. No cardiomegaly. Bones/joints: Unremarkable. IMPRESSION: No acute findings.
--- NOTE | 2024-03-23 04:45 | CT_ITS ---
PROCEDURE INFORMATION: Exam: CT Head Without Contrast Exam date and time: 03/23/2024 5:25 AM Age: 43 years old Clinical indication: Pain; Headache; Additional info: Headache worse than normal TECHNIQUE: Imaging protocol: Computed tomography of the head without contrast. Radiation optimization: All CT scans at this facility use at least one of these dose optimization techniques: automated exposure control; mA and/or kV adjustment per patient size (includes targeted exams where dose is matched to clinical indication); or iterative reconstruction. COMPARISON: CT SOFT TISSUE NECK WO CON 06/30/2023 6:45 AM FINDINGS: Brain: There is no evidence of acute parenchymal hemorrhage, extra-axial collection, or acute infarction. There is no mass effect, midline shift, or downward herniation. Cerebral ventricles: No ventriculomegaly. Paranasal sinuses: Visualized sinuses are unremarkable. No fluid levels. Mastoid air cells: Visualized mastoid air cells are well aerated. Bones: Unremarkable. No acute fracture. Soft tissues: Unremarkable. IMPRESSION: No acute intracranial abnormality.
--- NOTE | 2024-03-23 04:51 | ED_ITS ---
Discharge Plan Disposition Patient Disposition: Home, Self-Care Referrals Follow up/Referrals: Provider,ReferralMD [Primary Care Provider] - See instructions Activity Restrictions/Add. Instructions Additional Instructions/Restrictions: You were evaluated in the ER. You are appropriate for discharge at this time. Make an appointment with your primary care physician for reevaluation in 2 to 3 days to discuss your headaches and to be more closely managed outpatient. Return to the ER with new, worsening, or otherwise concerning symptoms. Clinical Impressions Clinical Impression: Headache Discharge ED Provider: Tessie Tomlin Adult HPI General Chief complaint: Headache Stated complaint: migraine, face and left shoulder feel numb Time Seen by Provider: 03/23/24 04:45 History of Present Illness HPI narrative: 43-year-old female with a history of migraines presents to the ER with concerns of headache since Wednesday. She states it has been progressively worsening. She states she has an abnormal sensation in the left side of her face and left arm, but does not describe them as weak, numb, or tingling. She states they feel as though they are swollen. Patient states she has taken Excedrin Migraine multiple times in the last 24 hours attempted to control her symptoms without much improvement. She is sensitive to light and sound also has nausea, no vomiting. Patient denies fevers, chills, chest pain, difficulty breathing. She does not take any hormones or control, no recent travel, no history of blood clots. She denies any vision changes. She does not describe the headache as thunderclap or sudden onset. Related Data Allergies Allergy/AdvReac Type Severity Reaction Status Date / Time No Known Allergies Allergy Verified 12/09/23 13:58 [facility] Disclaimer: The information contained in this section may have been updated after the patient was seen, as this information can be updated by other users. Medical History (Updated 03/23/24 @ 06:41 by Tessie Tomlin MD) Dyspareunia in female Weight gain Perimenopausal vasomotor symptoms Perimenopausal symptoms Sore throat Dysphagia Aspiration of food Abnormal barium swallow Neuropathy Chronic urticaria Dysphagia Sore throat Surgical History (Reviewed 12/09/23 @ 14:00 by Meg Thornton [facility] [address]) History of breast surgery History of dental surgery History of tubal ligation History of hysterectomy Hx of tonsillectomy Family History (Updated 12/09/23 @ 14:00 by Meg Thornton CMA) Other Adopted Social History Smoking Status: Current every day smoker tobacco type: e-cigarettes alcohol intake: current alcohol intake frequency: holidays/special occasions only substance use type: denies use current occupational status: employed Travel in the last 8 weeks: None household members: spouse housing: house current occupational exposures/hazards: Yes caffeine: Yes ROS Obtained: Yes All systems reviewed & no additional complaints except as documented Constitutional Constitutional: Denies chills, Denies fever(s), Reports headache(s) and Denies weakness Eyes Eyes: Denies change in vision, Denies loss of vision and Reports photophobia ENT Ears, Nose, Mouth, and Throat: Reports headache(s) Cardiovascular Cardiovascular: Denies chest pain, Denies dyspnea, Denies leg edema and Denies syncope Respiratory Respiratory: Denies cough and Denies dyspnea Gastrointestinal Gastrointestingal: Denies constipation, diarrhea, nausea or vomiting Genitourinary Female Genitourinary: Denies dysuria Musculoskeletal Musculoskeletal: Denies arthralgias, Denies myalgias, Denies numbness and Denies tingling Integumentary/Breasts Skin/Breast: Denies change in pigmentation Neurologic Neurologic: Reports headache(s), Denies loss of vision, Denies numbness, Denies sensory deficit, Denies syncope, Denies tingling and Denies weakness Physical Exam General General appearance: alert and in no apparent distress Head Head exam: atraumatic and normocephalic Eye Eye exam: Present PERRL and EOMI; Absent nystagmus ENT ENT exam: Present mucous membranes moist Neck Neck exam: Present normal inspection and full ROM Chest Chest inspection: Present symmetric chest wall rise Respiratory Respiratory exam: Absent respiratory distress or stridor Cardiovascular Cardiovascular exam: Present regular rate and normal rhythm Abdominal Exam Abdominal exam: Present soft; Absent distention, tenderness, guarding or rebound Extremities Exam Extremities exam: Present full ROM Neurological Exam Neurological exam: Present alert, oriented X3, CN II-XII intact, normal gait and other (GCS 15); Absent motor sensory deficit Psychiatric Psychiatric exam: Present normal affect and normal mood Skin Skin exam: Present warm and dry Medical Decision Making [place] Inquiry Pt receiving controlled substance: No Vital Signs: 03/23/24 04:46 03/23/24 05:00 03/23/24 05:30 Temperature 97.5 F L Temperature Source Oral Pulse Rate 80 71 Pulse Rate [Right Brachial] 89 Respiratory Rate 16 18 14 Blood Pressure 119/85 117/76 Blood Pressure [Right Arm] 117/95 H Blood Pressure Mean [Right Arm] 102 Blood Pressure Source [Right Arm] Automatic Cuff Blood Pressure Position [Right Arm] Sitting 02 Sat by Pulse Oximetry 98 97 96 Oxygen Delivery Method Room Air Room Air Room Air 03/23/24 06:00 Temperature Temperature Source Pulse Rate 59 L Pulse Rate [Right Brachial] Respiratory Rate 10 L Blood Pressure 112/74 Blood Pressure [Right Arm] Blood Pressure Mean [Right Arm] Blood Pressure Source [Right Arm] Blood Pressure Position [Right Arm] 02 Sat by Pulse Oximetry 99 Oxygen Delivery Method Room Air Lab Data Lab Results 03/23/24 04:55: WBC 8.5, RBC 5.48 H, Hgb 15.5, Hct 47.2 H, MCV 86.0, MCH 28.3, MCHC 32.8, RDW 13.9, Plt Count 414, MPV 7.5, Neut % (Auto) 53.2, Lymph % (Auto) 35.0, Emanuel % (Auto) 4.9, Eos % (Auto) 5.5, Baso % (Auto) 1.4, Neut # (Auto) 4.5, Lymph # (Auto) 3.0, Emanuel # (Auto) 0.4, Eos # (Auto) 0.5 H, Baso # (Auto) 0.1, Sodium 140, Potassium 3.4 L, Chloride 104, Carbon Dioxide 25, Anion Gap 14.4, BUN 7, Creatinine 0.90, Estimated Creat Clear 97, Estimated GFR 69, Est GFR ( Amer) 83, Glucose 117 H, Calcium 9.3, Total Bilirubin 0.4, AST 26, ALT 27, Alkaline Phosphatase 42, Troponin I < 0.01, Total Protein 6.8, Albumin 4.0, Globulin 2.8, Albumin/Globulin Ratio 1.4, Serum HCG, Qual Negative 03/23/24 04:55 03/23/24 04:55 Orders (Tests/Meds): ED MEDICATIONS Discontinued Medications Generic Name Dose Route Start Last Admin Trade Name Freq PRN Reason Stop Dose Admin Droperidol 2.5 mg 03/23/24 04:50 05/16/24 05:00 Droperidol 5mg/2ml Vial IV 03/23/24 04:51 2.5 mg ONCE ONE Administration Lactated Ringer's 1,000 mls @ 999 mls/hr 03/23/24 04:50 03/23/24 05:00 Lactated Ringer's 1000 Ml Bag IV 03/23/24 05:50 999 mls/hr .Q1H1M ONE Administration ORDERS Category Date Time Status CT head/brain wo con Stat Cat Scan 03/23/24 04:45 Completed CXR --portable [XR chest portable] Stat Exams 03/23/24 04:45 Completed CBC w/Auto Diff [Complete Blood Count Auto Diff] Stat Lab 03/23/24 04:55 Completed CMP [Comprehensive Metabolic Panel] Stat Lab 03/23/24 04:55 Completed HCG Qualitative, Serum Stat Lab 03/23/24 04:55 Completed Trop I [Troponin I] Stat Lab 03/23/24 04:55 Completed Troponin I Q3H Lab 03/23/24 08:00 Ordered Troponin I Q3H Lab 03/23/24 11:00 Ordered ECG Request Stat Y 03/23/24 04:45 Ordered HEART Score History (anamnesis): Slightly suspicious ECG: Non-specific disturbance Age: <45 years Risk factors: 1-2 risk factors Troponin: </= normal limit HEART Score: 2 Medical Decision Narrative: In summary, this 43year old female presents to the emergency department today with headache, photophobia, phonophobia, nausea, sensation of swelling in her left arm and left face. On initial evaluation patient is hemodynamically stable, afebrile, GCS 15, no focal neurologic deficits, no nystagmus, cardiopulmonary exam reassuring, remainder of exam benign. Differential diagnosis includes but is not limited to migraine, intracranial bleed, intracranial mass, I considered possibility of ischemic or other lesion but have very low suspicion for this given patient does not have identifiable neurodeficit. I believe most likely is atypical migraine however will examine the patient with CT head to rule out acute intracranial abnormality. Given complaint of abnormal sensation in the left arm and left face, also ruling out ACS with cardiac workup ECG personally interpreted demonstrates normal sinus rhythm, rate 81, normal axis, normal AR 147, QTc 445, no STEMI. Patient received IV fluids, droperidol for treatment. Labs personally reviewed demonstrate no leukocytosis or anemia, CMP with trace hypokalemia, patient received oral repletion, initial troponin undetectably low at less than 0.01, reassuring given very low suspicion for cardiac abnormality in the duration of patient's symptoms, no kidney or liver dysfunction. test negative. CT head personally interpreted does not demonstrate any acute intracranial abnormality such as bleed, mass, or midline shift, see radiology read for final interpretation. Patient received IV droperidol at 0500. Per hospital policy patient requires 2 hours of observation. She was placed in the ED observation at 0515 for monitoring for medication side effects of droperidol. Patient was on the cardiac monitor technician and frequently reassessed. On reassessment, she has had significant improvement of her symptoms. She has not had any abnormalities in her vitals, no changes in her rhythm, she has tolerated oral intake and is appropriate for discharge at this time. she was observed until 0700. Patient was given instructions on symptomatic management, follow up instructions, and return precautions for the emergency department. Patient indicated understanding and was discharged in stable condition. Total time in ED observation: 1 hour 45 minutes Critical Care Critical Care Time Critical Care Time: No
--- NOTE | 2024-03-23 04:57 | ECG_ITS ---
APPROVED REPORT Exam: Resting ECG HR:81 bpm ECG Measurements Heart Rate 81 AXES IN 147 P 50 QRSd 93 QRS 56 QT 407 T 16 QTc 445 Conclusion SINUS RHYTHM POSSIBLE RIGHT VENTRICULAR CONDUCTION DELAY [RSR (QR) IN V1/V2] MINIMAL ST DEPRESSION [0.025+ mV ST DEPRESSION] BORDERLINE ECG UNCONFIRMED REPORT Electronically signed by : EDY WALKER, 03/25/2024 06:03:20
[2024-03-23] MEDS: droPERidol 5MG/2ML VIAL 2.5 MG IV (05:00)
[2024-03-23] MEDS: LACTATED RINGERS 1000ML 1,000 ML 999 ML IV (05:00)
[2024-03-23 05:01] LABS: Basophils # 0.1 K/mm3 (0-0.2); Basophils % 1.4 % (0.1-2.0); Eosinophils # 0.5 K/mm3 (0.0-0.4); Eosinophils % 5.5 % (0.1-12.0); Hematocrit 47.2 % (37.0-47.0); Hemoglobin 15.5 g/dL (12.2-16.2); Mean Corpuscular HGB Conc 32.8 g/dL (31.8-35.4); Mean Corpuscular Hemoglobin 28.3 pg (27.0-31.2); Mean Platelet Volume 7.5 fl (7.4-10.4); Monocytes # 0.4 K/mm3 (0.1-1.0); Monocytes % 4.9 % (1.7-9.3); Neutrophils # 4.5 K/mm3 (1.8-7.8); Neutrophils % 53.2 % (37.0-80.0); Platelet Count 414 K/mm3 (142-424); Red Blood Count 5.48 M/mm3 (4.20-5.40); Red Cell Distribution Width 13.9 % (11.5-17.5); White Blood Count 8.5 K/mm3 (4.8-10.8)
[2024-03-23 05:07] LABS: HCG Qualitative, Serum Negative (Negative)
[2024-03-23 05:09] LABS: Alanine Aminotransferase 27 U/L (12-78); Albumin/Globulin Ratio 1.4 (1.1-1.8); Alkaline Phosphatase 42 U/L (38-126); Anion Gap 14.4 mEq/L (5-15); Aspartate Amino Transferase 26 U/L (14-36); Bilirubin,Total 0.4 mg/dl (0.2-1.3); Blood Urea Nitrogen 7 mg/dl (7-17); Calcium 9.3 mg/dl (8.4-10.2); Carbon Dioxide 25 mmol/L (22.0-30.0); Chloride 104 mmol/L (98-107); Creatinine Clearance Estimated 97 mL/min (50-200); Estimated Glomerular Filt Rate 69 ml/min (>60); GFR (African American) 83 ML/MIN (>60); Globulin 2.8 g/dL (1.3-3.2); Glucose 117 mg/dl (74-100); Potassium 3.4 mmoL/L (3.5-5.1); Sodium 140 mmol/L (136-145); Total Protein,Serum 6.8 g/dl (6.3-8.2)
[2024-03-23 05:21] LABS: Troponin I < 0.01 ng/ml (0.00-0.034)
--- NOTE | 2024-03-23 05:31 | PC.NURSE ---
Droperidol was given to pt at 0500 per JAN. Pt states that headache is still slightly there but is much better.
== END 2024-03-23 07:15 | disposition home or self-care (01) ==
PROVIDERS: Emergency Provider Emergency Medicine
DX: G44.89 Other headache syndrome (principal); R11.0 Nausea; F17.210 Nicotine dependence, cigarettes, uncomplicated
CPT/HCPCS: 70450; 71045; 80053; 84484; 84703; 85025; 93005; 96361; 96374; 99285; J1790

== ENCOUNTER 2024-04-18 17:00 | Outpatient (CLI) | payer BC, SELFPAY ==
--- NOTE | 2024-04-18 17:02 | MM_ITS ---
PROCEDURE INFORMATION: Exam: MG Bilateral Screening 3D Mammography Exam date and time: 04/18/2024 4:47 PM Age: 43 years old Clinical indication: Screening examination TECHNIQUE: Imaging protocol: Bilateral Screening tomosynthesis and 2D mammography including computer-aided detection (CAD) when performed. COMPARISON: 1. MG MM DIG MAMM BI DX W/CAD 08/23/2020 2:33 PM 2. MG MM DIG MAMM BI DX W/CAD 08/04/2019 4:11 PM FINDINGS: MAMMOGRAPHY: Breast composition: The breasts are heterogeneously dense, which may obscure small masses. Mass: None. Architectural distortion: Stable post operative architectural distortion in the right central breast . Calcifications: No suspicious calcifications. Asymmetric density: None. Skin thickening: None. Axillary adenopathy: None. IMPRESSION: No mammographic evidence of malignancy. Annual screening is recommended unless otherwise clinically indicated. ASSESSMENT: BI-RADS Category 2: Benign.
== END 2024-04-18 23:59 | disposition home or self-care (01) ==
LOC: RAD 17:01
PROVIDERS: PCP Nurse Practitioner; Visit Provider Nurse Practitioner Obstetrics & Gynecology
DX: Z12.31 Encounter for screening mammogram for malignant neoplasm of breast (principal)
CPT/HCPCS: 77063; 77067

== ENCOUNTER 2024-11-26 17:14 | Emergency (ER) | payer BC, SELFPAY ==
[2024-11-26 17:20] VITALS: BP 116/78; PULSE 91; RESP 19; TEMP 36.6; O2SAT 98; BMI 32.2
--- NOTE | 2024-11-26 17:27 | EXP.UTC ---
Discharge Plan Disposition Patient Disposition: Home, Self-Care Condition: Good Prescriptions Prescriptions: New fluticasone propionate [Flonase Allergy Relief] 50 mcg/actuation spray,suspension 1 spray intranasal Q12H Qty: 16 0RF Rx Instructions: administer into each nostril amoxicillin 875 mg tablet 875 mg PO BID 10 Days Qty: 20 0RF No Action gabapentin 600 mg tablet 600 mg PO TID Referrals Follow up/Referrals: Haylee (ED),ALEX Herrera [Primary Care Provider] - See instructions Activity Restrictions/Add. Instructions Additional Instructions/Restrictions: Take medication as prescribed. Increase fluids and rest. If symptoms persist or worsen, return to clinic/PCP. Clinical Impressions Clinical Impression: Acute suppur left otitis media w/o spontan rupture tympanic membrane Instructions Patient Instructions: DI for Eustachian Tube Dysfunction-Adult, DI for Middle Ear Infection-Adult Print Language Print Language: Tajik Discharge ED Provider: Tri Dougherty [facility] General Stated complaint: Left earache Mode of Arrival: Ambulatory Source of Information: Patient Limitations: No Limitations Time Seen by Provider: 11/26/24 17:25 Description of Symptoms (Recalled from Triage Doc. by RN): PATIENT C/O LEFT EAR PAIN X 4 DAYS HEENT Symptoms (Recalled from RN notes): Yes Resp Symptoms (Recalled from RN notes): No Skin Symptoms (Recalled from RN notes): No MS Symptoms (Recalled from RN notes): No Functional Status (Recalled from RN notes): WNL History of Present Illness Provider Complaint: Pt reports that her ear has hurt for the past 4 days. She states that she has used ear drops, but this has not helped. Related Data Home Medications ?Medication ?Instructions ?Recorded ?Confirmed gabapentin 600 mg tablet 600 mg PO TID 04/12/24 11/26/24 Previous Rx's ?Medication ?Instructions ?Recorded amoxicillin 875 mg tablet 875 mg PO BID 10 days #20 tabs 11/26/24 fluticasone propionate 50 1 spray intranasal Q12H #16 grams 11/26/24 mcg/actuation nasal spray,suspension (Flonase Allergy Relief) Allergies Allergy/AdvReac Type Severity Reaction Status Date / Time No Known Allergies Allergy Verified 04/12/24 13:58 Worker's Comp Is this a Worker's Comp case?: No [facility] Disclaimer: The information contained in this section may have been updated after the patient was seen, as this information can be updated by other users. Medical History Dyspareunia in female Weight gain Perimenopausal vasomotor symptoms Perimenopausal symptoms Sore throat Dysphagia Aspiration of food Abnormal barium swallow Neuropathy Chronic urticaria Dysphagia Sore throat Surgical History History of breast surgery History of dental surgery History of tubal ligation History of hysterectomy Hx of tonsillectomy Family History Other Adopted Social History Smoking Status: Current every day smoker tobacco type: e-cigarettes alcohol intake: current alcohol intake frequency: holidays/special occasions only substance use type: denies use current occupational status: employed Travel in the last 8 weeks: None household members: spouse housing: house current occupational exposures/hazards: Yes caffeine: Yes Have you lived/traveled outside [place] in past 30 days?: No Contact w/someone who lives/traveled outside [place] past 30 days?: No Exposure to someone with infectious disease in past 14 days?: No Do you have a fever (greater than 100.4 F or 38 C)?: No Have you tested positive for COVID-19: No Exposed to someone with COVID-19 in past 14 days?: No Do you have a sore throat?: No Do you have a cough?: No Do you have any weakness?: No Do you have any diarrhea?: No Are you experiencing any unusual bleeding?: No Do you have any muscle aches/pain?: No Do you have any abdominal pain?: No Are you experiencing loss of taste or smell?: No ROS Obtained: Yes All systems reviewed & no additional complaints except as documented Constitutional Constitutional: Reports system reviewed and no additional complaints, except as documented Eyes Eyes: Reports system reviewed and no additional complaints, except as documented ENT Ears, Nose, Mouth, and Throat: Reports system reviewed and no additional complaints, except as documented, Reports as per HPI and Reports otalgia Cardiovascular Cardiovascular: Reports system reviewed and no additional complaints, except as documented Respiratory Respiratory: Reports system reviewed and no additional complaints, except as documented Gastrointestinal Gastrointestingal: Reports system reviewed and no additional complaints, except as documented Genitourinary Female Genitourinary: Reports system reviewed and no additional complaints, except as documented Musculoskeletal Musculoskeletal: Reports system reviewed and no additional complaints, except as documented Integumentary/Breasts Skin/Breast: Reports system reviewed and no additional complaints, except as documented Neurologic Neurologic: Reports system reviewed and no additional complaints, except as documented Endocrine Endocrine: Reports system reviewed and no additional complaints, except as documented Hematologic/Lymphatic Henatologic/Lymphatic: Reports system reviewed and no additional complaints, except as documented Allergic/Immunologic Allergic/Immunologic: Reports system reviewed and no additional complaints, except as documented Physical Exam General General appearance: alert and in no apparent distress Head Head exam: atraumatic and normocephalic Eye Eye exam: Present normal appearance Expanded ENT Exam External ear exam: Present normal external inspection TM/Canal exam: Left TM: erythema, bulging and loss of landmarks and Bilateral TM: effusion Nose exam: Absent sinus tenderness Nasal speculum exam: Bilateral: normal Mouth exam: Present normal external inspection Teeth exam: Present normal inspection Throat exam: Present normal inspection Neck Neck exam: Present normal inspection; Absent lymphadenopathy Chest Chest inspection: Present normal inspection and symmetric chest wall rise Respiratory Respiratory exam: Present normal lung sounds bilaterally Cardiovascular Cardiovascular exam: Present regular rate, normal rhythm and normal heart sounds Abdominal Exam Abdominal exam: Present soft Extremities Exam Extremities exam: Present normal inspection Back Exam Back exam: Present normal inspection Neurological Exam Neurological exam: Present alert and oriented X3 Psychiatric Psychiatric exam: Present normal affect and normal mood Skin Skin exam: Present warm, dry and intact Lymphatic Lymphatic Findings: no adenopathy Medical Decision Making Medical Records Screening: Per USPSTF and CDC recommendations, given the prevalence of disease in our region, it is our hospital?s policy to screen for HIV and viral Hepatitis for all patients aged 18 and over and those with ongoing risk factors. [place] Inquiry Pt receiving controlled substance: No [place] was queried for this patient: No Vital Signs: 11/26/24 17:20 Temperature 97.8 F Temperature Source Oral Pulse Rate [Left Brachial] 91 H Respiratory Rate 19 Blood Pressure [Left Arm] 116/78 Blood Pressure Mean [Left Arm] 90 Blood Pressure Source [Left Arm] Automatic Cuff Blood Pressure Position [Left Arm] Sitting 02 Sat by Pulse Oximetry 98 Oxygen Delivery Method Room Air
[2024-11-26 17:35] VITALS: BP 116/78; PULSE 91; RESP 19; TEMP 36.6; O2SAT 98
== END 2024-11-26 17:39 | disposition home or self-care (01) ==
PROVIDERS: Emergency Provider Nurse Practitioner Family; PCP Nurse Practitioner
DX: H66.002 Acute suppurative otitis media without spontaneous rupture of ear drum, left ear (principal); H92.02 Otalgia, left ear
CPT/HCPCS: 99212; G0381

== ENCOUNTER 2024-12-29 14:49 | Outpatient (CLI) | payer BC, SELFPAY | END 2024-12-29 23:59 | disposition home or self-care (01) | LOC: RAD 14:49 | PROVIDERS: PCP Nurse Practitioner; Visit Provider Nurse Practitioner | DX: Z12.31 Encounter for screening mammogram for malignant neoplasm of breast (principal) | CPT/HCPCS: 77063; 77067 ==

== ENCOUNTER 2025-05-13 14:13 | Emergency (ER) | payer BC, SELFPAY ==
--- NOTE | 2025-05-13 14:13 | ECG_ITS ---
APPROVED REPORT Exam: Resting ECG HR:93 bpm ECG Measurements Heart Rate 93 AXES WV 162 P 54 QRSd 94 QRS -5 QT 366 T 32 QTc 417 Conclusion SINUS RHYTHM POSSIBLE LEFT ATRIAL ENLARGEMENT [-0.1mV P-WAVE IN V1/V2] INCOMPLETE RIGHT BUNDLE BRANCH BLOCK [90+ ms QRS DURATION, TERMINAL R IN V1/V2, 40+ ms S IN I/aVL/V4/V5/V6] No STEMI Electronically signed by : OUSMANE GALINDO, 05/13/2025 15:42:24
[2025-05-13 14:16] VITALS: BP 155/99; PULSE 102; RESP 18; TEMP 36.9; O2SAT 96; BMI 32.3
--- NOTE | 2025-05-13 14:19 | XR_ITS ---
PROCEDURE INFORMATION: Exam: XR Chest Exam date and time: 05/13/2025 2:44 PM Age: 44 years old Clinical indication: Shortness of breath TECHNIQUE: Imaging protocol: Radiologic exam of the chest. Views: 1 view. COMPARISON: CR XR CHEST PORTABLE 03/23/2024 5:16 AM FINDINGS: Lungs: Clear lungs. Pleural spaces: No pneumothorax. No sizable pleural effusion. Heart/Mediastinum: No cardiomegaly. Bones/joints: Unremarkable. IMPRESSION: Clear lungs.
--- NOTE | 2025-05-13 14:25 | ED_ITS ---
Discharge Plan Disposition Patient Disposition: Home, Self-Care Prescriptions Prescriptions: No Action gabapentin 600 mg tablet 600 mg PO TID fluticasone propionate [Flonase Allergy Relief] 50 mcg/actuation spray,suspension 1 spray intranasal Q12H Qty: 16 0RF Rx Instructions: administer into each nostril amoxicillin 875 mg tablet 875 mg PO BID 10 Days Qty: 20 0RF Referrals Follow up/Referrals: Provider,Referral, MD [Referring, Medical] - See instructions Activity Restrictions/Add. Instructions Additional Instructions/Restrictions: Increase fluids and rest. Follow-up with PCP if any worsening symptoms. Clinical Impressions Clinical Impression: Atypical chest pain Instructions Patient Instructions: DI for Atypical Chest Pain Print Language Print Language: Swedish Discharge ED Provider: Jameel Ponce HPI <Sharon Leach (ED), INSTRU[employer]UC[employer] - Last Filed: 05/13/25 17:45> General Chief Complaint: Chest Pain Stated Complaint: CP Time Seen by Provider: 05/13/25 14:15 Mode of Arrival: Ambulatory Source of Information: Patient Description of Symptoms (Recalled from ER Triage Doc. by RN): PT present to the ED for evaluation of midsternal chest pain that radiated under her left breast and left arm pit that worsens when she breaths in. Denies heavy lifting. Denies hx of heart issues. History of Present Illness HPI narrative: 44-year-old female presents to the ED for complaint of midsternal chest pain that started this morning when she woke up. She says it hurts in the center of her chest and under her left breast and into her left armpit. She says it does hurt worse when she takes a deep breath. She does have history of asthma. She is concerned about her lungs. Patient says she thought the pain would go away but it has not. Denies any other symptoms. No recent illness or fever. No nausea, vomiting or diarrhea. No other symptoms. Related Data Home Medications ?Medication ?Instructions ?Recorded ?Confirmed gabapentin 600 mg tablet 600 mg PO TID 04/12/2411/26 Previous Rx's ?Medication ?Instructions ?Recorded amoxicillin 875 mg tablet 875 mg PO BID 10 days #20 ta bs 11/26/24 fluticasone propionate 50 1 spray intranasal Q12H #16 grams 11/26/24 mcg/actuation nasal spray,suspension (Flonase Allergy Relief) Allergies Allergy/AdvReac Type Severity Reaction Status Date / Time No Known Allergies Allergy Verified 04/12/24 13:58 PFSH <Sharon Leach (LESTER), [employer]STRUCTOR [employer]UC[employer] - Last Filed: 05/13/25 17:45> PFS Disclaimer: The information contained in this section may have been updated after the patient was seen, as this information can be updated by other users. Medical History Dyspareunia in female Weight gain Perimenopausal vasomotor symptoms Perimenopausal symptoms Sore throat Dysphagia Aspiration of food Abnormal barium swallow Neuropathy Chronic urticaria Dysphagia Sore throat Surgical History History of breast surgery History of dental surgery History of tubal ligation History of hysterectomy Hx of tonsillectomy Family History Other Adopted Social History Smoking Status: Never smoker alcohol intake: current alcohol intake frequency: holidays/special occasions only substance use type: denies use current occupational status: employed Travel in the last 8 weeks?: None household members: spouse housing: house current occupational exposures/hazards: Yes caffeine: Yes Have you lived/traveled outside US in past 30 days?: No Contact w/someone who lives/traveled outside US past 30 days?: No Exposure to someone with infectious disease in past 14 days?: No Do you have a fever (greater than 100.4 F or 38 C)?: No Have you tested positive for COVID-19?: No Exposed to someone with COVID-19 in past 14 days?: No Do you have a sore throat?: No Do you have a cough?: No Do you have any weakness?: No Do you have any diarrhea?: No Are you experiencing any unusual bleeding?: No Do you have any muscle aches/pain?: No Do you have any abdominal pain?: No Are you experiencing loss of taste or smell?: No Other Medical History Have you received the Flu Vaccine for this season: No Have you received the Pneumonia Vaccine: No <Sharon TESFAYE), INSTRUCTOR [employer]UCATION - Last Filed: 05/13/25 17:45> ROS Obtained: Yes Systems reviewed as appropriate & no additional complaints except as documented Constitutional Constitutional: Reports as per HPI Physical Exam <Sharon Leach (ED), INSTRUCTOR [employer]UCATION - Last Filed: 05/13/25 17:45> General General appearance: alert and in no apparent distress Head Head exam: normocephalic Eye Eye exam: Present normal appearance and PERRL ENT ENT exam: Present mucous membranes moist Neck Neck exam: Present trachea midline Chest Chest inspection: Present normal inspection and symmetric chest wall rise Respiratory Respiratory exam: Present normal lung sounds bilaterally Cardiovascular Cardiovascular exam: Present normal rhythm, tachycardia, normal heart sounds, +S1 and +S2 Abdominal Exam Abdominal exam: Present soft and normal bowel sounds Extremities Exam Extremities exam: Present normal inspection, full ROM and normal capillary refill Back Exam Back exam: Present normal inspection and full ROM Neurological Exam Neurological exam: Present alert, oriented X3 and normal gait Psychiatric Psychiatric exam: Present normal affect and normal mood Skin Skin exam: Present warm and dry Lymphatic Lymphatic Findings: no adenopathy HEART Score <Sahron Leach (ED), INSTRUCTOR [employer]UCATION - Last Filed: 05/13/25 17:45> HEART Score HEART Score assessment performed?: Yes History (anamnesis): Slightly suspicious ECG: Normal Age: <45 years Risk factors: 1-2 risk factors Troponin: </= normal limit HEART Score: 1 <Eve Lopez DO - Last Filed: 05/13/25 15:35> HEART Score HEART Score: 1 <Jameel Ponce MD - Last Filed: 05/14/25 02:03> HEART Score HEART Score: 1 Critical Care <Sharon Leach (ED), INSTRUCTOR [employer]UCATION - Last Filed: 05/13/25 17:45> Critical Care Time Critical Care Time: No Medical Decision Making <Sharon Leach (ED), INSTRUCTOR [employer] EDUCATION - Last Filed: 05/13/25 17:45> [place] Inquiry Pt receiving controlled substance: No [place] was queried for this patient: No Vital Signs Vital Signs: 05/13/25 14:16 05/13/25 15:00 05/13/25 15:15 Temperature 98.4 F Temperature Source Oral Pulse Rate Pulse Rate [Right] 102 H Respiratory Rate 18 15 14 Blood Pressure 120/83 130/87 Blood Pressure [Left Arm] 155/99 H Blood Pressure Mean [Left Arm] 117 02 Sat by Pulse Oximetry 96 Oxygen Delivery Method Room Air 05/13/25 15:31 05/13/25 15:46 05/13/25 16:05 Temperature 98.4 F Temperature Source Oral Pulse Rate 85 Pulse Rate [Right] Respiratory Rate 14 16 13 Blood Pressure 126/101 H 106/73 L 118/76 Blood Pressure [Left Arm] Blood Pressure Mean [Left Arm] 02 Sat by Pulse Oximetry Oxygen Delivery Method Room Air Lab Data Labs: Lab Results 05/13/25 14:15: WBC 8.0, RBC 4.77, Hgb 13.3, Hct 38.3, MCV 80.3 L, MCH 27.9, MCHC 34.7, RDW 12.7, Plt Count 327, MPV 8.9, Neut % (Auto) 55.4, Lymph % (Auto) 33.0, [place] % (Auto) 6.9, Eos % (Auto) 3.5, Baso % (Auto) 0.9, Neut # (Auto) 4.4, Lymph # (Auto) 2.6, [place] # (Auto) 0.6, Eos # (Auto) 0.3, Baso # (Auto) 0.1, D- Dimer 0.42, Sodium 138, Potassium 3.6, Chloride 102, Carbon Dioxide 24, Anion Gap 15.6 H, BUN 8, Creatinine 0.80, Estimated Creat Clear 102, Estimated GFR 79, Est GFR ( Amer) 95, Glucose 132 H, Calcium 9.0, Magnesium 2.0, Total Bilirubin 0.3, AST 24, ALT 18, Alkaline Phosphatase 49, Troponin I < 0.01, Total Protein 6.7, Albumin 4.1, Globulin 2.6, Albumin/Globulin Ratio 1.6, Lipase 55 05/13/25 14:15 05/13/25 14:15 Response Orders (Tests/Meds): ED MEDICATIONS Discontinued Medications Generic Name Dose Route Start Last Admin Trade Name Freq PRN Reason Stop Dose Admin Dexamethasone Sodium Phosphate 8 mg 05/13/25 14:23 05/13/25 15:09 Dexamethasone 4mg/Ml 1ml Vial IV 05/13/25 14:24 8 mg ONCE ONE Administration Famotidine 20 mg 05/13/25 14:19 05/13/25 15:08 Famotidine 20mg/2ml Vial IV 05/13/25 14:20 20 mg ONCE ONE Administration Sodium Chloride 1,000 mls @ 999 mls/hr 05/13/25 14:23 05/13/25 15:08 Sod Chlor 0.9% 1000ml Bag IV 05/13/25 15:23 999 mls/hr .Q1H1M ONE Administration Ondansetron HCl 4 mg 05/13/25 14:23 05/13/25 15:10 Ondansetron 4mg/2ml Vial IV 05/13/25 14:24 4 mg ONCE ONE Administration Sodium Chloride 8 ml 05/13/25 14:19 Sodium Chloride 0.9% 10ml Vial IV 06/12/25 14:18 NEEDED PRN dilute pepcid ORDERS Category Date Time Status Chest XR -- portable [XR chest portable] Stat Exams 05/13/25 14:19 Completed CBC [Complete Blood Count Auto Diff] Stat Lab 05/13/25 14:15 Completed Comprehensive Metabolic Panel Stat Lab 05/13/25 14:15 Completed D-Dimer Stat Lab 05/13/25 14:15 Completed Lipase Stat Lab 05/13/25 14:15 Completed Magnesium Stat Lab 05/13/25 14:15 Completed Trop I [Troponin I] Stat Lab 05/13/25 14:15 Completed MDM Narrative Medical Decision Narrative: patient is a 44-year-old female presenting to the emergency department for evaluation of chest pain that started early this morning when she got up, hurts when she takes a deep breath. Patient is hemodynamically stable and nontoxic- appearing upon arrival, afebrile. Differential diagnosis includes costochondritis, asthma, ACS, musculoskeletal, among others. Workup will be conducted with hematologic labs, specific imaging. Initial inventions include crystalloid bolus, analgesic. Initial workup reviewed by me nothing acute negative tropes. Imaging informally interpreted by me and remarkable for nothing acute. Dr. Ponce also read as nothing acute. Patient symptoms have improved. Patient will follow-up with PCP. Patient safe for discharge home. <Eve Lopez, DO - Last Filed: 05/13/25 15:35> Vital Signs Vital Signs: 05/13/25 14:16 05/13/25 15:00 05/13/25 15:15 Temperature 98.4 F Temperature Source Oral Pulse Rate Pulse Rate [Right] 102 H Respiratory Rate 18 15 14 Blood Pressure 120/83 130/87 Blood Pressure [Left Arm] 155/99 H Blood Pressure Mean [Left Arm] 117 02 Sat by Pulse Oximetry 96 Oxygen Delivery Method Room Air 05/13/25 15:31 05/13/25 15:46 05/13/25 16:05 Temperature 98.4 F Temperature Source Oral Pulse Rate 85 Pulse Rate [Right] Respiratory Rate 14 16 13 Blood Pressure 126/101 H 106/73 L 118/76 Blood Pressure [Left Arm] Blood Pressure Mean [Left Arm] 02 Sat by Pulse Oximetry Oxygen Delivery Method Room Air Lab Data Labs: Lab Results 05/13/25 14:15: WBC 8.0, RBC 4.77, Hgb 13.3, Hct 38.3, MCV 80.3 L, MCH 27.9, MCHC 34.7, RDW 12.7, Plt Count 327, MPV 8.9, Neut % (Auto) 55.4, Lymph % (Auto) 33.0, [place] % (Auto) 6.9, Eos % (Auto) 3.5, Baso % (Auto) 0.9, Neut # (Auto) 4.4, Lymph # (Auto) 2.6, [place] # (Auto) 0.6, Eos # (Auto) 0.3, Baso # (Auto) 0.1, D- Dimer 0.42, Sodium 138, Potassium 3.6, Chloride 102, Carbon Dioxide 24, Anion Gap 15.6 H, BUN 8, Creatinine 0.80, Estimated Creat Clear 102, Estimated GFR 79, Est GFR ( Amer) 95, Glucose 132 H, Calcium 9.0, Magnesium 2.0, Total Bilirubin 0.3, AST 24, ALT 18, Alkaline Phosphatase 49, Troponin I < 0.01, Total Protein 6.7, Albumin 4.1, Globulin 2.6, Albumin/Globulin Ratio 1.6, Lipase 55 Response Orders (Tests/Meds): ED MEDICATIONS Discontinued Medications Generic Name Dose Route Start Last Admin Trade Name Freq PRN Reason Stop Dose Admin Dexamethasone Sodium Phosphate 8 mg 05/13/25 14:23 05/13/25 15:09 Dexamethasone 4mg/Ml 1ml Vial IV 05/13/25 14:24 8 mg ONCE ONE Administration Famotidine 20 mg 05/13/25 14:19 05/13/25 15:08 Famotidine 20mg/2ml Vial IV 05/13/25 14:20 20 mg ONCE ONE Administration Sodium Chloride 1,000 mls @ 999 mls/hr 05/13/25 14:23 05/13/25 15:08 Sod Chlor 0.9% 1000ml Bag IV 05/13/25 15:23 999 mls/hr .Q1H1M ONE Administration Ondansetron HCl 4 mg 05/13/25 14:23 05/13/25 15:10 Ondansetron 4mg/2ml Vial IV 05/13/25 14:24 4 mg ONCE ONE Administration Sodium Chloride 8 ml 05/13/25 14:19 Sodium Chloride 0.9% 10ml Vial IV 06/12/25 14:18 NEEDED PRN dilute pepcid ORDERS Category Date Time Status Chest XR -- portable [XR chest portable] Stat Exams 05/13/25 14:19 Completed CBC [Complete Blood Count Auto Diff] Stat Lab 05/13/25 14:15 Completed Comprehensive Metabolic Panel Stat Lab 05/13/25 14:15 Completed D-Dimer Stat Lab 05/13/25 14:15 Completed Lipase Stat Lab 05/13/25 14:15 Completed Magnesium Stat Lab 05/13/25 14:15 Completed Trop I [Troponin I] Stat Lab 05/13/25 14:15 Completed ECG Data Tracing #1: Attestation: I reviewed this ECG and interpreted as documented below: ECG Narrative: Normal sinus rhythm with a ventricular rate of 93 bpm. Incomplete right bundle branch block. No acute ST changes concerning for ischemia. ECG initial impression date: 05/13/25 ECG initial impression time: 14:16 <Jameel Ponce MD - Last Filed: 05/14/25 02:03> Vital Signs Vital Signs: 05/13/25 14:16 05/13/25 15:00 05/13/25 15:15 Temperature 98.4 F Temperature Source Oral Pulse Rate Pulse Rate [Right] 102 H Respiratory Rate 18 15 14 Blood Pressure 120/83 130/87 Blood Pressure [Left Arm] 155/99 H Blood Pressure Mean [Left Arm] 117 02 Sat by Pulse Oximetry 96 Oxygen Delivery Method Room Air 05/13/25 15:31 05/13/25 15:46 05/13/25 16:05 Temperature 98.4 F Temperature Source Oral Pulse Rate 85 Pulse Rate [Right] Respiratory Rate 14 16 13 Blood Pressure 126/101 H 106/73 L 118/76 Blood Pressure [Left Arm] Blood Pressure Mean [Left Arm] 02 Sat by Pulse Oximetry Oxygen Delivery Method Room Air Lab Data Labs: Lab Results 05/13/25 14:15: WBC 8.0, RBC 4.77, Hgb 13.3, Hct 38.3, MCV 80.3 L, MCH 27.9, MCHC 34.7, RDW 12.7, Plt Count 327, MPV 8.9, Neut % (Auto) 55.4, Lymph % (Auto) 33.0, [place] % (Auto) 6.9, Eos % (Auto) 3.5, Baso % (Auto) 0.9, Neut # (Auto) 4.4, Lymph # (Auto) 2.6, [place] # (Auto) 0.6, Eos # (Auto) 0.3, Baso # (Auto) 0.1, D- Dimer 0.42, Sodium 138, Potassium 3.6, Chloride 102, Carbon Dioxide 24, Anion Gap 15.6 H, BUN 8, Creatinine 0.80, Estimated Creat Clear 102, Estimated GFR 79, Est GFR ( Amer) 95, Glucose 132 H, Calcium 9.0, Magnesium 2.0, Total Bilirubin 0.3, AST 24, ALT 18, Alkaline Phosphatase 49, Troponin I < 0.01, Total Protein 6.7, Albumin 4.1, Globulin 2.6, Albumin/Globulin Ratio 1.6, Lipase 55 Response Orders (Tests/Meds): ED MEDICATIONS Discontinued Medications Generic Name Dose Route Start Last Admin Trade Name Freq PRN Reason Stop Dose Admin Dexamethasone Sodium Phosphate 8 mg 05/13/25 14:23 05/13/25 15:09 Dexamethasone 4mg/Ml 1ml Vial IV 05/13/25 14:24 8 mg ONCE ONE Administration Famotidine 20 mg 05/13/25 14:19 05/13/25 15:08 Famotidine 20mg/2ml Vial IV 05/13/25 14:20 20 mg ONCE ONE Administration Sodium Chloride 1,000 mls @ 999 mls/hr 05/13/25 14:23 05/13/25 15:08 Sod Chlor 0.9% 1000ml Bag IV 05/13/25 15:23 999 mls/hr .Q1H1M ONE Administration Ondansetron HCl 4 mg 05/13/25 14:23 05/13/25 15:10 Ondansetron 4mg/2ml Vial IV 05/13/25 14:24 4 mg ONCE ONE Administration Sodium Chloride 8 ml 05/13/25 14:19 Sodium Chloride 0.9% 10ml Vial IV 06/12/25 14:18 NEEDED PRN dilute pepcid ORDERS Category Date Time Status Chest XR -- portable [XR chest portable] Stat Exams 05/13/25 14:19 Completed CBC [Complete Blood Count Auto Diff] Stat Lab 05/13/25 14:15 Completed Comprehensive Metabolic Panel Stat Lab 05/13/25 14:15 Completed D-Dimer Stat Lab 05/13/25 14:15 Completed Lipase Stat Lab 05/13/25 14:15 Completed Magnesium Stat Lab 05/13/25 14:15 Completed Trop I [Troponin I] Stat Lab 05/13/25 14:15 Completed MDM Narrative Medical Decision Narrative: patient is a 44-year-old female presenting to the emergency department for evaluation of chest pain that started early this morning when she got up, hurts when she takes a deep breath. Patient is hemodynamically stable and nontoxic- appearing upon arrival, afebrile. Differential diagnosis includes costochondritis, asthma, ACS, musculoskeletal, among others. Workup will be conducted with hematologic labs, specific imaging. Initial inventions include crystalloid bolus, analgesic. Initial workup reviewed by me nothing acute negative tropes. Imaging informally interpreted by me and remarkable for nothing acute. Dr. Ponce also read as nothing acute. Patient symptoms have improved. Patient will follow-up with PCP. Patient safe for discharge home. I was consulted by the ZEKE, and we discussed the complexity of the problems being addressed. I approve the treatment and management plan for this patient's care in the emergency department, thus performing a substantive portion of the medical decision making. Jameel Ponec MD
[2025-05-13 14:33] LABS: Hematocrit 38.3 % (37.0-47.0); Hemoglobin 13.3 g/dL (12.2-16.2); Immature Granulocytes % 0.3 %; Mean Corpuscular HGB Conc 34.7 g/dL (31.8-35.4); Mean Corpuscular Hemoglobin 27.9 pg (27.0-31.2); Mean Corpuscular Volume 80.3 fl (81-99); Nucleated Red Blood Cells % 0 %; Platelet Count 327 K/mm3 (142-424); Red Blood Count 4.77 M/mm3 (4.20-5.40); Red Cell Distribution Width-SD 36.7 fL; White Blood Count 8.0 K/mm3 (4.8-10.8)
--- OUTSIDE RECORDS SUMMARY | 2025-05-13 14:35 | XMS_ITS | Clinical Summary ---
Author Organization [facility] Address [address] [place] [address] Care Team Providers Care Crm Administrator Name Role Phone Unknown, Provider Primary Care Provider Unavaila ble Allergies No known active allergies Social History Tobacco Use Types Packs/Day Years Used Date Smoking Tobacco: Never Assessed AUDIT-C Answer Date Recorded Q1: How often do you have a drink containing alcohol? Never 08/06/2024 Q2: How many drinks containi ng alcohol do you have on a typical day when you are drinking? Patient does not drink Q3: How often do you have si x or more drinks on one occasion? Never 08/06/2024 Interpersonal Safety Domain Source: IP Abuse Scr eening Answer Date Recorded Physical abuse Denies 08/06/2024 Verbal abuse Denies 08/06/2024 Emotional abuse Denies 08/06/2024 Financial abuse Denies 08/06/2024 Sexual abuse Denies 08/06/2024 Comments No Sex and Gender Information Value Date Recorded Sex Assigned at Not on file Legal Sex Female 1:50 AM EDT Gender Identity Not on file Sexual Orientation Not on file Last Filed Vital Signs Vital Sign Reading Time Taken Comments Blood Pressure 110/82 08/06/2024 2:49 AM EDT Pulse 87 08/06/2024 4:30 AM EDT Temperature 36.7 C (98.1 F) 08/06/2024 2:03 AM EDT Respiratory Rate 18 08/06/2024 4:30 AM EDT Oxygen Saturation 94% 08/06/2024 4:30 AM EDT Inhaled Oxygen Concentration - - Weight 75.3 kg (166 lb) 08/06/2024 2:03 AM EDT Height 147.3 cm (4' 10 ) 08/06/2024 2:03 AM EDT Body Mass Index 34.69 08/06/2024 2:03 AM EDT Plan of Treatment Health Maintenance Due Date Last Done Comments Depression Screen 1994 Varicella vaccine (1 of 2 - 13+ 2-dose series) 1995 HIV screen 1997 Hepatitis C screen 2000 DTaP/Tdap/Td vaccine (1 - Tdap) 2001 Hepatitis B vaccine (1 of 3 - 19+ 3-dose series) 2001 Pap smear 2003 Cervical cancer screen 2012 HPV (without or with Pap) 2012 Diabetes screen 2017 Breast cancer screen 2022 Lipids 2022 COVID-19 Vaccine (2 - 2023-2 5 season) 2024 10/03/2021 Flu vaccine (#1) 06/08/2025 HPV vaccine Aged Out No longer eligi ble based on patient's age to complete this topic Hepatitis A vaccine Aged Out No longe r eligible based on patient's age to complete this topic Hib vaccine Aged Out No longer eligi ble based on patient's age to complete this topic Meningococcal (ACWY) vaccine Aged Out No longer eligible based on patient's age to complete this topic Meningococcal B vaccine Aged Out No l onger eligible based on patient's age to complete this topic Pneumococcal 0-49 years Vaccine Aged Out No longer eligible based on patient's age to complete this topic Polio vaccine Aged Out No longer elig ible based on patient's [place] [id number] BCBS OUT OF [place] Care Teams Crm Administrator Relationship Specialty Start Date End Date Unknown, Provider PCP - General Family Practice 08/06/24
--- OUTSIDE RECORDS SUMMARY | 2025-05-13 14:35 | XMS_ITS | Data Portability ---
Author Organization [facility] Address [address] [facility] [address] [address] [place] [address] Assessment No assessment recorded. Plan of Treatment Reminders Order Date Submit Date Provider Last Modified By Organization Details Last Modified Time Details Appointments None record ed. Lab None record ed. Referral None record ed. Procedures None record ed. Surgeries None record ed. Imaging None record ed. Medication Orders None record ed. Patient TargetsNo targets recorded. Patient InstructionsNo instructions recorded. Reason for Referral None Reported. Results Created Date Observation Date Name Description Value Unit Range Abnormal Flag Note LastModifiedBy Organization Detail LastModifiedTime 08/20/20 23 08/20/2023 [facility] surgical SEE BELOW normal Depar tment of Patho logy Surgi raven Patho logy Repor t NAME: ARLENE CANO DO PATH. :ST-2 3-115 Copy to: Diagn osis: Esoph ageal biops y: -Esop hagit is with arya moore react reyes anderson es and low numbe rs of eosin ophil s. -Peak eosin ophil count : 8/hpf . Comme nt: The peak eosin ophil count is well below the rick l cutof f for eosin ophil ic esoph agiti s. Howev er, marke d react reyes mucos al anderson es commo nly seen in eosin ophil ic esoph agiti s are prese nt. Corre late with clini raven findi ngs for final disea se class ifica tion. SOURC E OF SPECI MEN: ESOPH AGEAL BIOPS Y CLINI [facility] INFOR MATIO N: R13.1 0 R/O EOSIN OPHIL IC ESOPH AGITI S COLLE CTION : SPECI MEN REMOV AL: 7:[address] PL[address] D IN FIXAT REYES: 7:47 O'ANGELA CK COLD ISCHE MURPHY TIME: 0 MINUT ES TOTAL FIXAT ION TIME: 11 1/2 HOURS Gross Descr iptio n: Recei pool in forma curt label ed with the patie nt's name and desig nated as esop hagea l biops y are four fragm ents of pale alcala tissu e rangi ng in size from 0.2 cm to 0.7 cm. Entir cameron submi tted in one casse tte. [place] 09/07 12:04 PM Micro scopi c Descr iptio n: Secti ons show numer ous strip s of esoph ageal squam ous epith elium with marke d react reyes anderosn es, inclu ding marke d expan terri of the parab carol cell layer , moder ate to marke d elong ation of submu cosal vascu lar papil lae and moder ate to marke d inter cellu lar edema . Surfa ce epith elial desqu amati on is focal ly prese nt but not promi nent. Intra epith elial eosin ophil s are readi ly ident ified throu ghout , with a peak eosin ophil count as indic ated in the diagn osis. Eosin ophil degra nulat ion is minim al or absen t. Eosin ophil micro absce sses are not ident ified . Surfa ce layer ing of eosin ophil s is not ident ified . ESTEFANÍA BAUER MD Brit d Out Date: 09/08 16:51 Page 1 of 1 Not Available [facility] [address] [place] [address], [id number], 09/08/2023 16:52:27 Result Notes None recorded. Medical Equipment None Reported. Vitals None Recorded Social History None recorded. Functional Status None recorded. Mental Status None recorded. Family History Nothing Reported. Medical History No medical history recorded. Gynecological HistoryNo gynecological history recorded. Obstetrics History GPAL:G 0 P 0 0 0 0 Past Encounters Encounter ID Performer Location Encounter Start Date Encounter Closed Date Diagnosis/Indication Diagnosis SNOMED-CT Code Diagnosis ICD10 Code Diagnosis Note [id number] RICO JOSHI MD SURGERY SCHEDULE [facility] [place] [address] 09/07/2023 06:25:49 09/07/2023 06:26:51 Health Concerns Section Related Observation LastModified by Organization Detai ls LastModified Time None Recorded Concern Status LastModified by Organization Details LastModified Time None Recorded Advance Directives Directive None Recorded Payers Insurance Date Sequence Insurance Name Policy Number Policy Fields Covered Member ID Fields Member ID Guarantor Name 09/10/2023 1 [place] ([place] [id number] N Kaitlynn Nunez Geovanny [id number] Kaitlynn Geovanny OBGyn Episode No OBEpisode recorded.
[2025-05-13 14:42] LABS: Alanine Aminotransferase 18 U/L (12-78); Albumin Level 4.1 g/dl (3.5-5.0); Albumin/Globulin Ratio 1.6 (1.1-1.8); Alkaline Phosphatase 49 U/L (38-126); Anion Gap 15.6 mEq/L (5-15); Aspartate Amino Transferase 24 U/L (14-36); Bilirubin,Total 0.3 mg/dl (0.2-1.3); Blood Urea Nitrogen 8 mg/dl (7-17); Calcium 9.0 mg/dl (8.4-10.2); Carbon Dioxide 24 mmol/L (22.0-30.0); Chloride 102 mmol/L (98-107); Creatinine Clearance Estimated 102 mL/min (50-200); Creatinine,Serum 0.80 mg/dl (0.52-1.04); Estimated Glomerular Filt Rate 79 ml/min (>60); GFR (African American) 95 ML/MIN (>60); Globulin 2.6 g/dL (1.3-3.2); Glucose 132 mg/dl (74-100); Lipase 55 U/L (23-300); Magnesium 2.0 mg/dl (1.6-2.3); Potassium 3.6 mmoL/L (3.5-5.1); Sodium 138 mmol/L (136-145); Total Protein,Serum 6.7 g/dl (6.3-8.2)
[2025-05-13 14:46] LABS: D-Dimer 0.42 ug/mL (0.0-0.5)
[2025-05-13 14:55] LABS: Troponin I < 0.01 ng/ml (0.00-0.034)
[2025-05-13 15:00] VITALS: BP 120/83; RESP 15
[2025-05-13] MEDS: 0.9 % SODIUM CHLORIDE 1000ML 1,000 ML 999 ML IV (15:08)
[2025-05-13] MEDS: FAMOTIDINE 20MG/2ML VIAL 20 MG IV (15:08)
[2025-05-13] MEDS: DEXAMETHASONE 4MG/ML 1ML VIAL 8 MG IV (15:09)
[2025-05-13] MEDS: ONDANSETRON 4MG/2ML VIAL 4 MG IV (15:10)
[2025-05-13 15:15] VITALS: BP 130/87; RESP 14
[2025-05-13 15:31] VITALS: BP 126/101; RESP 14
[2025-05-13 15:46] VITALS: BP 106/73; RESP 16
[2025-05-13 16:05] VITALS: BP 118/76; PULSE 85; RESP 13; TEMP 36.9; O2SAT 100
== END 2025-05-13 16:06 | disposition home or self-care (01) ==
PROVIDERS: Nurse Practitioner; Emergency Provider Student in an Organized Health Care Education/Training Program; PCP Nurse Practitioner Family
DX: R07.89 Other chest pain (principal); F32.A Depression, unspecified
CPT/HCPCS: 71045; 80053; 83690; 83735; 84484; 85025; 85378; 93005; 96361; 96374; 96375; 99285; J1100; J2405; J7030